=== PATIENT | female | born 1950 | race Caucasian/White ===

== ENCOUNTER → 2016-12-06 | Outpatient (CLI) | payer OTHER | LOC: WI 10:19 | PROVIDERS: ATTEND Physician Assistant Medical | DX: Z78.0 Asymptomatic menopausal state (principal) | CPT/HCPCS: 77080 ==

== ENCOUNTER 2019-01-13 08:31 | Day surgery (SDC) | payer MEDICARE, OTHER ==
[~2019-01-13 08:31] MED LIST: KETOROLAC TROMETHAMINE 0.45% 4 DROP/0.4 ML DROPERETTE OS PRN
[2019-01-13] MEDS ORDERED: CHONDR SU A NA/HYALUR INTRAOC KIT (SURGICARE) ONE (08:32)
[2019-01-13] MEDS ORDERED: LIDOCAINE 1% INJ-PF (10 MG/ML) 30 ML SDV ONE (08:32)
[2019-01-13] MEDS ORDERED: EPINEPHRINE INJ/PF 1 MG/1 ML AMPULE ONE (08:32)
[2019-01-13] MEDS ORDERED: TOBRAMYCIN SULFATE/DEXAMETH OPH OINTMENT 3.5 GM ONE (08:32)
[2019-01-13] MEDS: TETRACAINE HCL 0.5% OPH SOLN 0.6 ML DROPERETTE OS PRN ×3 (08:51→09:30)
[2019-01-13] MEDS: TROPICAMIDE 1% OPH SOLN 3 ML OS PRN ×3 (08:52→09:16)
[2019-01-13] MEDS: BESIFLOXACIN HCL 0.6% OPH SUSP 5 ML BOTTLE OS PRN ×3 (08:52→09:49)
[2019-01-13] MEDS: CYCLOPENTOLATE 0.2%/PHENYLEPHRINE 1% OPH SOLN 2 ML OS PRN ×3 (08:52→09:16)
[2019-01-13] MEDS ORDERED: MIDAZOLAM 2 MG/2 ML INJ ONE (09:31)
[2019-01-13] MEDS ORDERED: FENTANYL CITRATE INJ/PF 100 MCG/2 ML AMPUL ONE (09:32)
== END 2019-01-13 10:37 | disposition home or self-care (01) ==
LOC: SC 08:31
PROVIDERS: ATTEND Ophthalmology
DX: H25.12 Age-related nuclear cataract, left eye (principal); I10 Essential (primary) hypertension; E78.00 Pure hypercholesterolemia, unspecified; Z87.891 Personal history of nicotine dependence; Z79.899 Other long term (current) drug therapy
CPT/HCPCS: 66984; V2632; J2250; J3490 ×3; A9270; J0171; J3010; 142

== ENCOUNTER 2019-05-13 09:07 | Inpatient (IN) | payer MEDICARE, OTHER ==
[2019-05-13] MEDS ORDERED: RINGERS SOLUTION,LACTATED 1,000 ML IV ONE ×2 (09:17→10:00)
--- NOTE | 2019-05-13 09:26 | ER Document Report ---
ED General - General Chief Complaint: Altered Mental Status Stated Complaint: ALTERED MENTAL STATUS Time Seen by Provider: 05/13/19 09:17 Primary Care Provider: MADDISON MG MD [Primary Care Provider] - Follow up as needed TRAVEL OUTSIDE OF THE [place] IN LAST 30 DAYS: Yes - HPI Notes: Patient is a 68-year-old female that presents to the emergency department for chief complaint of altered mental status. HPI is provided by EMS. Patient's called EMS this morning when she seemed to be less responsive. She reportedly was discharged from [facility] last week after having a ischemic stroke which resulted in left-sided deficits. Patient's told EMS that last night she had chills and started to complain of not feeling well. This morning she had 2 episodes of emesis one was prior to EMS arrival and one after. Patient was noted to have a fever of 103 by EMS. Patient states she feels tired but denies pain. She is oriented but slow to respond to questions and a poor historian. Past Medical History: Ischemic stroke Past Surgical History: Reviewed in chart Social History: Reviewed in chart Family History: Reviewed and noncontributory for presenting illness Allergies: Reviewed, see documented allergy list. REVIEW OF SYSTEMS: Unable to obtain because of acuity of condition PHYSICAL EXAMINATION: Vital signs reviewed, nursing noted reviewed. GENERAL: Ill-appearing, well-nourished and in no acute distress. HEAD: Atraumatic, normocephalic. EYES: Eyes appear normal, extraocular movements intact, sclera anicteric, conjunctiva are normal. ENT: nares patent, oropharynx clear without exudates. Mildly dry mucous membranes. NECK: Normal range of motion, supple without lymphadenopathy LUNGS: Breath sounds clear to auscultation bilaterally and equal. No wheezes rales or rhonchi. HEART: Regular rate and rhythm without murmurs ABDOMEN: Soft, nontender, normoactive bowel sounds. No rebound, guarding, or rigidity. No masses appreciated. EXTREMITIES: Nontender, good range of motion, no pitting or edema. NEUROLOGICAL: Somnolent, oriented to person place and time, left upper and lower extremity weakness compared to right. sensory grossly intact on exam. SKIN: Warm, Dry, normal turgor, no rashes or lesions noted on exposed skin - Related Data Allergies/Adverse Reactions: No Known Allergies Allergy (Unverified 06/30/13 13:26) Past Medical History - Social History Smoking Status: Never Smoker Family History: Reviewed & Not Pertinent - Past Medical History Cardiac Medical History: Reports: Hx Hypertension Denies: Hx Heart Attack Pulmonary Medical History: Denies: Hx Asthma Neurological Medical History: Denies: Hx Cerebrovascular Accident, Hx Seizures GI Medical History: Denies: Hx Hepatitis, Hx Hiatal Hernia, Hx Ulcer Infectious Medical History: Denies: Hx Hepatitis Past Surgical History: Reports: Hx Hysterectomy. Denies: Hx Mastectomy, Hx Open Heart Surgery, Hx Pacemaker Physical Exam - Vital signs Vitals: Resp Pulse Ox 21 H 100 05/13/19 09:14 05/13/19 09:14 Course - Re-evaluation Re-evalutation: 05/13/19 09:26 Vitals reviewed. Nursing notes reviewed. Patient was febrile with a temperature of 103 for EMS. They did administer Benadryl and Tylenol orally pr ior to arrival in the ED. They state the Benadryl was for nausea. Patient does have an NIH of 7 but her left-sided deficits are from her recent stroke. Patient has no new significant focal deficits to necessitate TPA. Given her febrile presentation I am suspicious for encephalopathy instead of new ischemic stroke. EMS did report patient received a shunt during her last admission but they do not know where the shunt is. 05/13/19 09:59 Patient reevaluated. Her vital signs are still stable. She still has a temperature of 103 despite receiving Tylenol by EMS. Patient does appear more alert. She is answering questions better but is still slow to respond. 05/13/19 11:30 He did receive documentation from elena and regarding patient's admission which shows she had thrombectomy and right carotid stenting. Patient's work-up today consistent with urosepsis. She has been given Rocephin and 2 L of LR. she will be admitted to the hospital for further care. Case discussed with Dr. Byers who accepts admission. Laboratory 05/13/19 05/13/19 05/13/19 09:14 09:14 09:14 WBC 14.2 H RBC 3.39 L Hgb 10.3 L Hct 30.7 L MCV 90 MCH 30.4 MCHC 33.6 RDW 13.6 Plt Count 417 Total Counted 100 Seg Neutrophils % Not Reportable Seg Neuts % (Manual) 89 H Band Neutrophils % 6 H Lymphocytes % Not Reportable Lymphocytes % (Manual) 4 L Monocytes % Not Reportable Monocytes % (Manual) 1 L Eosinophils % Not Reportable Eosinophils % (Manual) 0 Basophils % Not Reportable Basophils % (Manual) 0 Absolute Neutrophils Not Reportable Abs Neuts (Manual) 13.5 H Absolute Lymphocytes Not Reportable Abs Lymphs (Manual) 0.6 Absolute Monocytes Not Reportable Abs Monocytes (Manual) 0.1 Absolute Eosinophils Not Reportable Absolute Eos (Manual) 0.0 Absolute Basophils Not Reportable Abs Basophils (Manual) 0.0 Toxic Granulation 1+ Toxic Vacuolation PRESENT Platelet Comment ADEQUATE Polychromasia 1+ Poikilocytosis SLIGHT Basophilic Stippling PRESENT Ovalocytes SLIGHT PT 14.8 INR 1.15 VBG pH VBG pCO2 VBG HCO3 VBG Base Excess Sodium 137.7 Potassium 4.0 Chloride 103 Carbon Dioxide 25 Anion Gap 10 BUN 12 Creatinine 0.65 Est GFR ( Amer) > 60 Est GFR (Non-Af Amer) > 60 Glucose 136 H POC Glucose Lactic Acid Calcium 8.9 Total Bilirubin 0.6 Direct Bilirubin 0.3 Neonat Total Bilirubin Not Reportable Neonat Direct Bilirubin Not Reportable Neonat Indirect Bili Not Reportable AST 31 ALT 20 Alkaline Phosphatase 67 Troponin I Total Protein 6.2 L Albumin 3.5 Urine Color Urine Appearance Urine pH Ur Specific [place] Urine Protein Urine Glucose (UA) Urine Ketones Urine Blood Urine Nitrite Urine Bilirubin Urine Urobilinogen Ur Leukocyte Esterase Urine WBC (Auto) Urine RBC (Auto) Squamous Epi Cells Auto Urine Mucus (Auto) Urine Ascorbic Acid 05/13/19 05/13/19 05/13/19 09:14 09:14 09:14 WBC RBC Hgb Hct MCV MCH MCHC RDW Plt Count Total Counted Seg Neutrophils % Seg Neuts % (Manual) Band Neutrophils % Lymphocytes % Lymphocytes % (Manual) Monocytes % Monocytes % (Manual) Eosinophils % Eosinophils % (Manual) Basophils % Basophils % (Manual) Absolute Neutrophils Abs Neuts (Manual) Absolute Lymphocytes Abs Lymphs (Manual) Absolute Monocytes Abs Monocytes (Manual) Absolute Eosinophils Absolute Eos (Manual) Absolute Basophils Abs Basophils (Manual) Toxic Granulation Toxic Vacuolation Platelet Comment Polychromasia Poikilocytosis Basophilic Stippling Ovalocytes PT INR VBG pH 7.38 VBG pCO2 40.1 VBG HCO3 23.2 VBG Base Excess -1.7 Sodium Potassium Chloride Carbon Dioxide Anion Gap BUN Creatinine Est GFR ( Amer) Est GFR (Non-Af Amer) Glucose POC Glucose Lactic Acid 1.4 Calcium Total Bilirubin Direct Bilirubin Neonat Total Bilirubin Neonat Direct Bilirubin Neonat Indirect Bili AST ALT Alkaline Phosphatase Troponin I 0.025 Total Protein Albumin Urine Color Urine Appearance Urine pH Ur Specific [place] Urine Protein Urine Glucose (UA) Urine Ketones Urine Blood Urine Nitrite Urine Bilirubin Urine Urobilinogen Ur Leukocyte Esterase Urine WBC (Auto) Urine RBC (Auto) Squamous Epi Cells Auto Urine Mucus (Auto) Urine Ascorbic Acid 05/13/19 05/13/19 09:43 09:55 WBC RBC Hgb Hct MCV MCH MCHC RDW Plt Count Total Counted Seg Neutrophils % Seg Neuts % (Manual) Band Neutrophils % Lymphocytes % Lymphocytes % (Manual) Monocytes % Monocytes % (Manual) Eosinophils % Eosinophils % (Manual) Basophils % Basophils % (Manual) Absolute Neutrophils Abs Neuts (Manual) Absolute Lymphocytes Abs Lymphs (Manual) Absolute Monocytes Abs Monocytes (Manual) Absolute Eosinophils Absolute Eos (Manual) Absolute Basophils Abs Basophils (Manual) Toxic Granulation Toxic Vacuolation Platelet Comment Polychromasia Poikilocytosis Basophilic Stippling Ovalocytes PT INR VBG pH VBG pCO2 VBG HCO3 VBG Base Excess Sodium Potassium Chloride Carbon Dioxide Anion Gap BUN Creatinine Est GFR ( Amer) Est GFR (Non-Af Amer) Glucose POC Glucose 159 H Lactic Acid Calcium Total Bilirubin Direct Bilirubin Neonat Total Bilirubin Neonat Direct Bilirubin Neonat Indirect Bili AST ALT Alkaline Phosphatase Troponin I Total Protein Albumin Urine Color YELLOW Urine Appearance CLEAR Urine pH 5.0 Ur Specific [place] 1.013 Urine Protein NEGATIVE Urine Glucose (UA) NEGATIVE Urine Ketones NEGATIVE Urine Blood NEGATIVE Urine Nitrite NEGATIVE Urine Bilirubin NEGATIVE Urine Urobilinogen NEGATIVE Ur Leukocyte Esterase TRACE H Urine WBC (Auto) 18 Urine RBC (Auto) 3 Squamous Epi Cells Auto <1 Urine Mucus (Auto) FEW Urine Ascorbic Acid 20 H Chest X-Ray 05/13/19 09:18 IMPRESSION: NO ACUTE RADIOGRAPHIC FINDING IN THE CHEST. Head CT 05/13/19 09:18 IMPRESSION: Age-appropriate chronic white matter disease. Mild motion artifact. No acute findings. EVIDENCE OF ACUTE STROKE: NO. - Vital Signs Vital signs: Temp Pulse Resp BP Pulse Ox 101.4 F H 94 15 98/48 L 95 05/13/19 11:01 05/13/19 09:17 05/13/19 11:01 05/13/19 11:00 05/13/19 11:01 - Laboratory Result Diagrams: 05/13/19 09:14 05/13/19 09:14 Laboratory results interpreted by me: 05/13/19 05/13/19 05/13/19 09:14 09:14 09:43 WBC 14.2 H RBC 3.39 L Hgb 10.3 L Hct 30.7 L Seg Neuts % (Manual) 89 H Band Neutrophils % 6 H Lymphocytes % (Manual) 4 L Monocytes % (Manual) 1 L Abs Neuts (Manual) 13.5 H Glucose 136 H POC Glucose 159 H Total Protein 6.2 L Ur Leukocyte Esterase Urine Ascorbic Acid 05/13/19 09:55 WBC RBC Hgb Hct Seg Neuts % (Manual) Band Neutrophils % Lymphocytes % (Manual) Monocytes % (Manual) Abs Neuts (Manual) Glucose POC Glucose Total Protein Ur Leukocyte Esterase TRACE H Urine Ascorbic Acid 20 H - EKG Interpretation by Me Additional EKG results interpreted by me: 05/13/19 09:26 Interpreted by myself [id number]: Normal sinus rhythm, rate 86, normal axis, no ectopy, no STEMI Discharge - Discharge Clinical Impression: Acute UTI Sepsis Qualifiers: Sepsis type: sepsis due to unspecified organism Qualified Code(s): A41.9 - Sepsis, unspecified organism Altered mental status Qualifiers: Altered mental status type: somnolence Qualified Code(s): R40.0 - Somnolence Vomiting Qualifiers: Vomiting type: unspecified Vomiting Intractability: non-intractable Nausea presence: with nausea Qualified Code(s): R11.2 - Nausea with vomiting, unspecified Condition: Fair Disposition: ADMITTED INPATIENT Admitting Provider: Modesta (Hospitalist) Unit Admitted: IMCU Referrals: MADDISON MG MD [Primary Care Provider] - Follow up as needed ED NIH Stroke Scale - NIH Stroke Scale *: 1. NIH scale should be completed with appropriate accompanying assessment tools. *: 2. The NIH should reflect what the patient is capable of doing and should not be coached by the clinician. 1a. Level of Consciousness: 0=Alert;keenly responsive -: 1=Drowsy -: 2=Obtunded -: 3=Coma/unresponsive or reflex to noxious stimuli. 1a. Responses: 1 1b. Orientation Questions: a. What month is it? -: b. How old are you? -: 0=Answers both questions correctly. -: 1=Answers one question correctly or patient is intubated or has orotracheal trauma. -: 2=Answers neither question correctly. 1b. Responses: 0 1c. Response to commands: a. Open and close eyes? -: b. [employer] and release hand? -: Credit is given despite weakness. Demonstration of task is permitted. Substitute command if hands cannot be used. -: 0=Performs both tasks correctly -: 1=Performs one task correctly -: 2=Performs neither task correctly 1c. Responses: 0 2. Gaze: Establish eye contact and instruct patient to "Follow my finger" -: 0=Normal -: 1=Partial gaze palsy. Gaze is abnormal in one or both eyes, but where forced deviation or total gaze paresis is not present. -: 2=Forced deviation or total gaze paresis. 2. Responses: 0 3. Visual Arana: Sees fingers in all four quadrants. -: 0=No visual loss. -: 1=Partial hemianopsia. -: 2=Complete hemianopsia. -: 3=Bilateral hemianopsia (including Cortical blindness) 3. Responses: 0 4. Facial Movement: Instruct patient to: -: a. Show me your teeth -: b. Raise your eyebrows -: c. Close your eyes -: d. Smile -: 0=Normal symmetrical movement -: 1=Minor paralysis (flattened nasolabial fold, asymmetry on smiling). -: 2=Partial paralysis (total or near total paralysis of lower face). -: 3=Complete paralysis of upper and lower face 4. Responses: 0 5. Motor functions (left arm): Alternate sides and extend each arm with palms down (90 degrees if sitting or 45 degrees for supine). -: 0=No drift;limb holds for full 10 seconds. -: 1=Drift; limb holds but drifts down before full 10 seconds, but does not hit bed. -: 2=Some effort against gravity; limb cannot get to or maintain position. -: 3=No effort against gravity; limb falls. -: 4=No movement. -: UN=Amputation, joint fusion, explain in comments. 5. Responses (left arm): 1 5. Motor Functions (right arm): Alternate sides and extend each arm with palms down (90 degrees if sitting or 45 degrees for supine). -: 0=No drift;limb holds for full 10 seconds. -: 1=Drift; limb holds but drifts down before full 10 seconds, but does not hit bed. -: 2=Some effort against gravity; limb cannot get to or maintain position. -: 3=No effort against gravity; limb falls. -: 4=No movement. -: UN=Amputation, joint fusion, explain in comments. 5. Responses (right arm): 0 6. Motor Functions (left leg): With patient lying supine, alternate sides and extend each leg (30 degrees always while supine). -: 0=No drift, leg holds position for full 5 seconds -: 1=Drift; leg falls before full 5 seconds but does not hit bed. -: 2=Some effort against gravity, leg falls to bed but some effort against gravity. -: 3=No effort against gravity, leg falls to bed immediately. -: 4=No movement. -: UN=Amputation, joint fusion; explain in comments. 6. Responses (left leg): 3 6. Motor Functions (right leg): With patient lying supine, alternate sides and extend each leg (30 degrees always while supine). -: 0=No drift, leg holds position for full 5 seconds -: 1=Drift; leg falls before full 5 seconds but does not hit bed. -: 2=Some effort against gravity, leg falls to bed but some effort against gravity. -: 3=No effort against gravity, leg falls to bed immediately. -: 4=No movement. -: UN=Amputation, joint fusion; explain in comments. 6. Responses (right leg): 2 7. Limb Ataxia: With eyes open instruct patient to: -: a. "Touch your finger to your nose". -: b. "Touch your heel to your montero" -: 0=Absent -: 1=Present in one limb. -: 2=Present in two limbs. -: UN=Amputation or joint fusion; explain in comments. 7. Responses: 0 8. Sensory: Test sensation using pinprick or noxious stimuli. Test as many body parts as possible. -: 0=Normal;no sensory loss -: 1=Mile to moderate sensory loss (patient feels pin prick but is less sharp on affected side). -: 2=Severe or total sensory loss. 8. Responses: 0 9. Best Language: Instruct patient to: -: a. "Describe what you see in this picture." -: b. "Name the items in this picture." -: c. "Read these sentences." -: 0=No aphasia, normal -: 1=Mild to moderate aphasia. -: 2=Severe aphasia -: 3=Mute, global aphasia, no usable speech or auditory comprehension. 9. Responses: 0 10. Articulation, Dysarthia: Instruct patient to: -: "Read these words" or "Repeat these words" -: 0=Normal -: 1=Mild to moderate; patient may slur some words but can be understood without difficulty. -: 2=Severe; patients speech so slurred as to be unintelligible in the absence of dysphasia. -: UN=Intubated or other physical barrier, explain in comments. 10. Responses: 0 11. Extinction or inattention: 0=No abnormality -: 1= Visual, tactile, auditory, spatial, or personal inattention or extinction to bilateral simulation in one or the sensory modalities. -: 2=Profound ros-inattention or ros-inattention to more than one modality; does not recognize own hand. 11. Responses: 0 Total Score: 7
[2019-05-13 09:29] LABS: VENOUS BLOOD BASE EXCESS -1.7 mmol/L; VENOUS BLOOD HCO3 23.2 mmol/L (20-32); VENOUS BLOOD PCO2 40.1 mmHg (35-63); VENOUS BLOOD PH 7.38 (7.30-7.42)
[2019-05-13 09:30] LABS: HEMATOCRIT 30.7 % (36.0-47.0); HEMOGLOBIN 10.3 g/dL (12.0-15.5); MEAN CORPUSCULAR HEMOGLOBIN 30.4 pg (27.0-33.4); MEAN CORPUSCULAR HGB CONC 33.6 g/dL (32.0-36.0); MEAN CORPUSCULAR VOLUME 90 fl (80-97); PLATELET COUNT 417 10^3/uL (150-450); RED BLOOD COUNT 3.39 10^6/uL (3.72-5.28); RED CELL DISTRIBUTION WIDTH 13.6 % (11.5-14.0); WHITE BLOOD COUNT 14.2 10^3/uL (4.0-10.5)
[2019-05-13 09:42] LABS: INTERNATIONAL RATION (INR) 1.15; PROTHROMBIN TIME 14.8 SEC (11.4-15.4)
--- NOTE | 2019-05-13 09:46 | RADIOLOGY REPORT (SQ) ---
EXAM DESCRIPTION: CHEST SINGLE VIEW COMPLETED DATE/TIME: 05/13/2019 9:35 am REASON FOR STUDY: fever COMPARISON: None. EXAM PARAMETERS: NUMBER OF VIEWS: One view. TECHNIQUE: Single frontal radiographic view of the chest acquired. RADIATION DOSE: NA LIMITATIONS: None. FINDINGS: LUNGS AND PLEURA: No opacities, masses or pneumothorax. No pleural effusion. MEDIASTINUM AND HILAR STRUCTURES: No masses. Contour normal. HEART AND VASCULAR STRUCTURES: Heart normal in size. Normal vasculature. BONES: No acute findings. HARDWARE: None in the chest. OTHER: No other significant finding. IMPRESSION: NO ACUTE RADIOGRAPHIC FINDING IN THE CHEST. TECHNICAL DOCUMENTATION: JOB ID: [id number] [employer]- All Rights Reserved Reading location - IP/workstation name: [email or web address]
[2019-05-13 09:51] LABS: ABSOLUTE LYMPHOCYTES# (MANUAL) 0.6 10^3/uL (0.5-4.7); ABSOLUTE MONOCYTES # (MANUAL) 0.1 10^3/uL (0.1-1.4); BAND NEUTROPHILS % (MANUAL) 6 % (3-5); BASOPHILS % (MANUAL) 0 % (0-2); EOSINOPHILS % (MANUAL) 0 % (0-6); LYMPHOCYTES % (MANUAL) 4 % (13-45); MONOCYTES % (MANUAL) 1 % (3-13); SEGMENTED NEUTROPHILS % (MAN) 89 % (42-78); TOTAL CELLS COUNTED 100
[2019-05-13 09:54] LABS: OVALOCYTES SLIGHT; PLATELET COMMENT ADEQUATE; POIKILOCYTOSIS SLIGHT; POLYCHROMASIA 1+; TOXIC GRANULATION 1+; TOXIC VACUOLATION PRESENT
[2019-05-13 09:57] LABS: ALANINE AMINOTRANSFERASE 20 U/L (9-52); ALBUMIN 3.5 g/dL (3.5-5.0); ALKALINE PHOSPHATASE 67 U/L (38-126); ANION GAP 10 (5-19); ASPARTATE AMINO TRANSFERASE 31 U/L (14-36); BILIRUBIN,DIRECT 0.3 mg/dL (0.0-0.4); BILIRUBIN,TOTAL 0.6 mg/dL (0.2-1.3); BLOOD UREA NITROGEN 12 mg/dL (7-20); CALCIUM 8.9 mg/dL (8.4-10.2); CARBON DIOXIDE 25 mmol/L (22-30); CHLORIDE 103 mmol/L (98-107); GLUCOSE 136 mg/dL (75-110); TOTAL PROTEIN 6.2 g/dL (6.3-8.2)
[2019-05-13] MEDS ORDERED: KETOROLAC TROMETHAMINE INJ/PF 30 MG/1 ML SDV IV ONE (09:58)
[2019-05-13] MEDS ORDERED: ONDANSETRON HCL INJ/PF 4 MG/2 ML SDV IV ONE (09:59)
--- NOTE | 2019-05-13 10:10 | RADIOLOGY REPORT (SQ) ---
EXAM DESCRIPTION: CT HEAD WITHOUT COMPLETED DATE/TIME: 05/13/2019 9:44 am REASON FOR STUDY: Altered mental status COMPARISON: AP chest 05/13/2019 Bilateral carotid Doppler exams 08/20/2017, 10/24/2015 TECHNIQUE: Axial images acquired through the brain without intravenous contrast. Images reviewed wi th bone, brain and subdural windows. Additional sagittal and coronal reconstructions were generated. Images stored on PACS. All CT scanners at this facility use dose modulation, iterative reconstruction, and/or weight based d osing when appropriate to reduce radiation dose to as low as reasonably achievable (ALARA). [facility]: Dose Right [facility]: CareDose [facility]: Dose Right [facility]: Teradose 4D [facility]: CardioLogs RADIATION DOSE: CT Rad equipment meets quality standard of care and radiation dose reduction techniq ues were employed. CTDIvol: 53.2 mGy. DLP: 1017 mGy-cm. mGy. LIMITATIONS: Motion artifact on some of the images through the skullbase FINDINGS: VENTRICLES: Normal size and contour. CEREBRUM: No CT evidence of acute large territory ischemic change, acute intracranial hemorrhage, mas s effect, or midline shift. Please note that some of the images are degraded by patient motion artifact. Patient does have basel ine white matter disease in the bifrontal and biparietal regions. These findings were discussed with Nadia Liriano in the emergency room. CEREBELLUM: No masses. No hemorrhage. No alteration of density. No evidence for acute infarction. EXTRAAXIAL SPACES: No fluid collections. No masses. ORBITS AND GLOBE: No intra- or extraconal masses. Post cataract surgery bilaterally CALVARIUM: No fracture. PARANASAL SINUSES: No fluid or mucosal thickening. SOFT TISSUES: No mass or hematoma. OTHER: No other significant finding. IMPRESSION: Age-appropriate chronic white matter disease. Mild motion artifact. No acute findings. EVIDENCE OF ACUTE STROKE: NO. COMMENT: Quality ID # [id number]: Final reports with documentation of one or more dose reduction techniques (e.g., Automated exposure control, adjustment of the mA and/or kV according to patient size, use of iterative reconstruction technique) TECHNICAL DOCUMENTATION: JOB ID: [id number] [employer]- All Rights Reserved Reading location - IP/workstation name: [email or web address]-
[2019-05-13 11:19] LABS: APPEARANCE,URINE CLEAR; BILIRUBIN,URINE NEGATIVE (NEGATIVE); COLOR,URINE YELLOW; GLUCOSE, URINE NEGATIVE (NEGATIVE); KETONES,URINE NEGATIVE (NEGATIVE); LEUKOCYTE ESTERASE,URINE TRACE (NEGATIVE); NITRITE,URINE NEGATIVE (NEGATIVE); PROTEIN,URINE NEGATIVE (NEGATIVE); URINE SPECIFIC GRAVITY 1.013; UROBILINOGEN,URINE NEGATIVE mg/dL (<2.0)
[2019-05-13] MEDS ORDERED: CEFTRIAXONE INJ 1000 MG VIAL IV ONE (11:25)
[2019-05-13] MEDS ORDERED: NORMAL SALINE 1000 ML 1,000 ML IV PRN (12:13)
--- NOTE | 2019-05-13 13:26 | PDOC H&P ---
History of Present Illness Admission Date/PCP: 05/13/19 11:37 MADDISON MG MD Patient complains of: fever, chills History of Present Illness: CHRIS WILBURN is a 68 year old female with a past medical history of hypertension and recent right MCA CVA with mechanical thrombectomy and right ICA angioplasty advised and on 05/07/19 who is presenting with fever and chills. is at bedside. Both aspirin and patient say that she has been apparently fine since she was discharged from the [facility] after her recent CVA. Her stroke symptoms did resolve after neuro intervention. He says that on Friday, she started having chills. She says that last night she had some subjective fever and had chills again. She had an episode of nonbilious, nonbloody vomiting. She denies abdominal pain. She denies dysuria but does report urinary frequency in the past 2 to 3 days. She denies had a, neck pain. No confusion. She is well oriented and coherent. Denies cough or chest pain. Denies shortness of breath. In the ER, patient was noted to be febrile at 101 and blood pressure is running low at 88/55. She was also noted to have leukocytosis. Initial work-up is unremarkable for urinary tract infection. She is currently getting IV fluids. Past Medical History Cardiac Medical History: Reports: Hypertension Denies: Myocardial Infarction Pulmonary Medical History: Denies: Asthma Neurological Medical History: Denies: Seizures GI Medical History: Denies: Hepatitis, Hiatal Hernia Hematology: Denies: Anemia, Sickle Cell Disease Past Surgical History Past Surgical History: Reports: Hysterectomy Denies: Amputation, Mastectomy, Pacemaker Social History Smoking Status: Never Smoker Family History Family History: Reviewed & Not Pertinent Parental Family History Reviewed: Yes - No premature CAD Children Family History Reviewed: No Sibling(s) Family History Reviewed.: No Medication/Allergy Home Medications: Aspirin [Ecotrin 325 mg EC Tablet] 325 mg PO DAILY 05/13/19 Atorvastatin Calcium [Lipitor 40 mg Tablet] 40 mg PO QHS 05/13/19 Clopidogrel Bisulfate [Plavix 75 mg Tablet] 75 mg PO DAILY 05/13/19 Fluoxetine HCl [Prozac 20 mg Capsule] 20 mg PO DAILY 05/13/19 Allergies/Adverse Reactions: No Known Allergies Allergy (Unverified 06/30/13 13:26) Review of Systems All systems: reviewed and no additional remarkable complaints except as stated - As mentioned in HPI Physical Exam Vital Signs: Temp Pulse Resp BP Pulse Ox 101.4 F H 94 15 98/48 L 95 05/13/19 11:01 05/13/19 09:17 05/13/19 11:01 05/13/19 11:00 05/13/19 11:01 Intake & Output 05/12/19 05/13/19 05/14/19 06:59 06:59 06:59 Intake Total 1999 Balance 1999 Weight 141 lb 5.061 oz General appearance: PRESENT: no acute distress, well-developed, well-nourished Head exam: PRESENT: atraumatic, normocephalic Eye exam: PRESENT: conjunctiva pink, EOMI, PERRLA. ABSENT: scleral icterus Ear exam: PRESENT: normal external ear exam Mouth exam: PRESENT: moist, tongue midline Neck exam: ABSENT: carotid bruit, JVD, lymphadenopathy, thyromegaly Respiratory exam: PRESENT: clear to auscultation jareth. ABSENT: rales, rhonchi, wheezes Cardiovascular exam: PRESENT: RRR. ABSENT: diastolic murmur, rubs, systolic murmur Pulses: PRESENT: normal dorsalis pedis pul GI/Abdominal exam: PRESENT: normal bowel sounds, soft. ABSENT: distended, guarding, mass, organolmegaly, rebound, tenderness Rectal exam: PRESENT: deferred Extremities exam: PRESENT: full ROM. ABSENT: calf tenderness, clubbing, pedal edema Neurological exam: PRESENT: alert, awake, oriented to person, oriented to place, oriented to time, oriented to situation, CN II-XII grossly intact. ABSENT: motor sensory deficit Results Laboratory Results: 05/13/19 09:14 05/13/19 09:14 05/13/19 05/13/19 05/13/19 09:14 09:14 09:14 WBC 14.2 H RBC 3.39 L Hgb 10.3 L Hct 30.7 L MCV 90 MCH 30.4 MCHC 33.6 RDW 13.6 Plt Count 417 Seg Neutrophils % Not Reportable Lymphocytes % Not Reportable Monocytes % Not Reportable Eosinophils % Not Reportable Basophils % Not Reportable Absolute Neutrophils Not Reportable Absolute Lymphocytes Not Reportable Absolute Monocytes Not Reportable Absolute Eosinophils Not Reportable Absolute Basophils Not Reportable VBG pH VBG pCO2 VBG HCO3 VBG Base Excess Sodium 137.7 Potassium 4.0 Chloride 103 Carbon Dioxide 25 Anion Gap 10 BUN 12 Creatinine 0.65 Est GFR ( Amer) > 60 Est GFR (Non-Af Amer) > 60 Glucose 136 H Lactic Acid 1.4 Calcium 8.9 Total Bilirubin 0.6 AST 31 ALT 20 Alkaline Phosphatase 67 Total Protein 6.2 L Albumin 3.5 Urine Color Urine Appearance Urine pH Ur Specific Darby Urine Protein Urine Glucose (UA) Urine Ketones Urine Blood Urine Nitrite Ur Leukocyte Esterase Urine WBC (Auto) Urine RBC (Auto) 05/13/19 05/13/19 09:14 09:55 WBC RBC Hgb Hct MCV MCH MCHC RDW Plt Count Seg Neutrophils % Lymphocytes % Monocytes % Eosinophils % Basophils % Absolute Neutrophils Absolute Lymphocytes Absolute Monocytes Absolute Eosinophils Absolute Basophils VBG pH 7.38 VBG pCO2 40.1 VBG HCO3 23.2 VBG Base Excess -1.7 Sodium Potassium Chloride Carbon Dioxide Anion Gap BUN Creatinine Est GFR ( Amer) Est GFR (Non-Af Amer) Glucose Lactic Acid Calcium Total Bilirubin AST ALT Alkaline Phosphatase Total Protein Albumin Urine Color YELLOW Urine Appearance CLEAR Urine pH 5.0 Ur Specific Darby 1.013 Urine Protein NEGATIVE Urine Glucose (UA) NEGATIVE Urine Ketones NEGATIVE Urine Blood NEGATIVE Urine Nitrite NEGATIVE Ur Leukocyte Esterase TRACE H Urine WBC (Auto) 18 Urine RBC (Auto) 3 05/13/19 09:14 Troponin I 0.025 Impressions: Chest X-Ray 05/13/19 09:18 IMPRESSION: NO ACUTE RADIOGRAPHIC FINDING IN THE CHEST. Head CT 05/13/19 09:18 IMPRESSION: Age-appropriate chronic white matter disease. Mild motion artifact. No acute findings. EVIDENCE OF ACUTE STROKE: NO. Assessment and Plan - Diagnosis (1) Sepsis Qualifiers: Sepsis type: sepsis due to unspecified organism Qualified Code(s): A41.9 - Sepsis, unspecified organism Is this a current diagnosis for this admission?: Yes Plan: Likely secondary to urinary tract infection. Will continue Rocephin. Blood and urine cultures have been sent. She will be given a liter of IV fluids. If there is no improvement in her blood pressure, she may need a vasopressor. (2) UTI (urinary tract infection) Is this a current diagnosis for this admission?: Yes Plan: We will continue IV Rocephin. Urine culture sent. (3) Recent cerebrovascular accident (CVA) Is this a current diagnosis for this admission?: Yes Plan: Recent right MCA mechanical thrombectomy and a right ICA angioplasty on 05/07/2019. Her CVA symptoms particularly left-sided hemiparesis has completely resolved. Will resume aspirin and Plavix. - Time Time Spent with patient: 25-34 minutes
--- NOTE | 2019-05-13 13:27 | ADVANCED CARE ---
- Diagnosis (1) Sepsis Diagnosis Current: Yes (2) UTI (urinary tract infection) Diagnosis Current: Yes (3) Recent cerebrovascular accident (CVA) Diagnosis Current: Yes Resuscitation Status: Full Code Discussion: Discussed with patient and at bedside. She says she is a full code and prefers chest compressions, defibrillation and mechanical ventilation if the need arises. She says her , Yevgeniy is her surrogate medical decision maker.
--- NOTE | 2019-05-13 18:14 | EKG REPORT ---
SEVERITY:- NORMAL ECG - SINUS RHYTHM : Confirmed by: Pratima Pagan MD 13-May-2019 18:13:46
[2019-05-13] MEDS ORDERED: VANCOMYCIN HCL 0 MG in DEXTROSE 5%-WATER 250 ML IV NR (21:00)
[2019-05-13 21:06] LABS: ARTERIAL BLOOD BASE EXCESS -3.8 mmol/L; ARTERIAL BLOOD H2CO3 0.86 mmol/L (1.05-1.35); ARTERIAL BLOOD HCO3 19.2 mmol/L (20-24); ARTERIAL BLOOD O2 SATURATION 89.8 % (94-98); ARTERIAL BLOOD PCO2 28.7 mmHg (35-45); ARTERIAL BLOOD PH 7.44 (7.35-7.45); ARTERIAL BLOOD PO2 53.9 mmHg (80-100); ARTERIAL BLOOD TOTAL CO2 20.1 mmol/L (21-25)
[2019-05-13 21:09] LABS: ARTERIAL BLOOD FIO2 100%
[2019-05-13] MEDS: HEPARIN SOD (PORCINE) 5,000 UNIT/ML 1 ML VIAL SUBCUT SCH (21:18)
[2019-05-13] MEDS ORDERED: FUROSEMIDE INJ/PF 40 MG/4 ML SDV IV ONE (21:30)
[2019-05-13] MEDS ORDERED: MORPHINE SULFATE 10 MG/ML INJ IV ONE (21:30)
--- NOTE | 2019-05-13 21:48 | RADIOLOGY REPORT (SQ) ---
EXAM DESCRIPTION: XR CHEST 1 VIEW COMPLETED DATE/TME: 05/13/2019 00:00 CLINICAL HISTORY: 68 years, Female, sob findings: Right lower lobe and left lower lobe airspace disease/pulmonary edema. No significant pleural effusions. IMPRESSION: Findings consistent with CHF.
--- NOTE | 2019-05-13 21:49 | RADIOLOGY REPORT (SQ) ---
XR ABDOMEN 2 VIEWS SUPINE ERECT CLINICAL STATEMENT: vomiting COMPARISON: None FINDINGS: No abnormal renal or ureteral calculus identified. Mild amount of stool in the colon. No free air. No dilated loops of bowel or air-fluid levels. Postoperative changes in the lumbar spine. IMPRESSION: No evidence for bowel obstruction.
[2019-05-13] MEDS ORDERED: VANCOMYCIN HCL 1,250 MG in DEXTROSE 5%-WATER 250 ML IV ONE (22:00)
[2019-05-13 22:04] LABS: ANION GAP 7 (5-19); BLOOD UREA NITROGEN 11 mg/dL (7-20); CALCIUM 8.8 mg/dL (8.4-10.2); CARBON DIOXIDE 25 mmol/L (22-30); CHLORIDE 109 mmol/L (98-107); CREATINE KINASE 414 U/L (30-135); GLUCOSE 130 mg/dL (75-110); POTASSIUM 3.9 mmol/L (3.6-5.0)
[2019-05-13 22:16] LABS: CREATINE KINASE MB 5.02 ng/mL (<4.55)
[2019-05-13 22:19] LABS: TROPONIN I 0.122 ng/mL
[2019-05-13] MEDS ORDERED: ATORVASTATIN CALCIUM 40 MG TABLET PO ONE (23:15)
[2019-05-13] MEDS ORDERED: ASPIRIN 300 MG SUPP, RECTAL PR ONE ×2 (23:15→23:25)
[2019-05-13] MEDS: ACETAMINOPHEN 325 MG SUPP.RECT PR PRN (23:18)
[2019-05-14 03:48] LABS: ABSOLUTE LYMPHOCYTES (AUTO) 0.9 10^3/uL (0.5-4.7); ABSOLUTE MONOCYTES (AUTO) 0.8 10^3/uL (0.1-1.4); ABSOLUTE NEUT (AUTO) 14.3 10^3/uL (1.7-8.2); BASOPHILS % (AUTO) 0.3 % (0-2); LYMPHOCYTES % (AUTO) 5.6 % (13-45); MEAN CORPUSCULAR HEMOGLOBIN 30.2 pg (27.0-33.4); MEAN CORPUSCULAR HGB CONC 33.5 g/dL (32.0-36.0); MEAN CORPUSCULAR VOLUME 90 fl (80-97); MONOCYTES % (AUTO) 4.8 % (3-13); PLATELET COUNT 337 10^3/uL (150-450); RED BLOOD COUNT 2.99 10^6/uL (3.72-5.28); RED CELL DISTRIBUTION WIDTH 13.9 % (11.5-14.0); SEGMENTED NEUTROPHILS % (AUTO) 89.3 % (42-78); TOTAL CELLS COUNTED % (AUTO) 100 %
[2019-05-14 04:06] LABS: ANION GAP 6 (5-19); BLOOD UREA NITROGEN 11 mg/dL (7-20); CALCIUM 8.4 mg/dL (8.4-10.2); CARBON DIOXIDE 26 mmol/L (22-30); CHLORIDE 109 mmol/L (98-107); GLUCOSE 136 mg/dL (75-110); POTASSIUM 3.6 mmol/L (3.6-5.0)
[2019-05-14 04:17] LABS: CREATINE KINASE MB 5.56 ng/mL (<4.55)
[2019-05-14 04:21] LABS: TROPONIN I 1.59 ng/mL
--- NOTE | 2019-05-14 08:48 | RADIOLOGY REPORT (SQ) ---
EXAM DESCRIPTION: CHEST SINGLE VIEW COMPLETED DATE/TIME: 05/14/2019 8:26 am REASON FOR STUDY: reassess congestion COMPARISON: 05/13/2019 2103 hours EXAM PARAMETERS: NUMBER OF VIEWS: One view. TECHNIQUE: Single frontal radiographic view of the chest acquired. RADIATION DOSE: NA LIMITATIONS: None. FINDINGS: LUNGS AND PLEURA: No opacities, masses or pneumothorax. No pleural effusion. MEDIASTINUM AND HILAR STRUCTURES: No masses. Contour normal. HEART AND VASCULAR STRUCTURES: Heart normal in size. Normal vasculature. BONES: No acute findings. HARDWARE: None in the chest. OTHER: No other significant finding. IMPRESSION: Resolved alveolar and interstitial pulmonary edema. TECHNICAL DOCUMENTATION: JOB ID: [id number] [employer]- All Rights Reserved Reading location - IP/workstation name: [email or web address]
[2019-05-14] MEDS ORDERED: CEFTRIAXONE 1 GM/D5W RTU 1 GM/50 ML RTUPB IV SCH (10:00)
[2019-05-14] MEDS ORDERED: ASPIRIN 81 MG TABLET, CHEWABLE PO SCH (10:00)
[2019-05-14] MEDS: CLOPIDOGREL BISULFATE 75 MG TABLET PO SCH (10:07)
[2019-05-14] MEDS: HEPARIN SOD (PORCINE) 5,000 UNIT/ML 1 ML VIAL SUBCUT SCH ×2 (10:07→22:10)
[2019-05-14] MEDS: VANCOMYCIN HCL 750 MG in DEXTROSE 5%-WATER 250 ML IV SCH ×2 (10:14→22:11)
[2019-05-14] MEDS: CEFTRIAXONE SODIUM 1,000 MG in DEXTROSE 5%-WATER 50 ML IV SCH (10:15)
[2019-05-14 10:25] LABS: CREATINE KINASE MB 7.53 ng/mL (<4.55)
[2019-05-14 10:33] LABS: TROPONIN I 0.971 ng/mL
--- NOTE | 2019-05-14 14:11 | XCELERA REPORT ---
[address] [address] Transthoracic Echocardiogram Report Name: CHRIS WILBURN Age: 68 yrs Gender: Female : 1950 Patient Status: Inpatient Patient Location: [facility]^A Study Date: 05/14/2019 10:42 AM Height: 63 in Weight: 148 lb BSA: 1.7 m2 Procedure: A two-dimensional transthoracic echocardiogram with color flow and Doppler was performed. The study was technically difficult with many images being suboptimal in quality. Reason For Study: acute chf History: CHF. Ordering Physician: ROYAL GUTIERREZ Performed By: Jessi Negrete Interpretation Summary The left ventricle is normal in size. There is normal left ventricular wall thickness. LV EF is > than 65% Left ventricular systolic function is normal. Doppler measurements suggest normal left ventricular diastolic function The left ventricular wall motion is normal. There is no thrombus. The right ventricle is mildly dilated. The right ventricle is not well visualized secondary to technical limitations The right atrium is normal. The left atrial size is normal. No ASD,VSD,or PFO seen. There is no evidence of mitral valve prolapse. There is no vegetation seen on the mitral valve. There is no mitral valve stenosis. There is a trace amount of mitral regurgitation There is no aortic valvular vegetation. There is no aortic valve stenosis There is no LVOT obstruction. No aortic regurgitation is present. There is no pulmonic valvular stenosis. There is no pulmonic valvular regurgitation. The aortic root is normal size. The inferior vena cava appeared dilated and decreased < 50% with respiration (RAP 15-20 mmHg) There is no tricuspid stenosis. There is a moderate to severe amount of tricuspid regurgitation There is moderate pulmonary hypertension by echo RVSP is 54 to 59 mm of Hg , with RA mean of 15 to20. There is no pericardial effusion. MMode/2D Measurements & Calculations RVDd: 3.8 cm LVIDd: 4.2 cm FS: 38.4 % Ao root diam: 2.2 cm IVSd: 0.83 cm LVIDs: 2.6 cm EDV(Teich): 77.5 ml Ao root area: 3.9 cm2 LVPWd: 0.76 cm ESV(Teich): 24.0 ml LA dimension: 3.9 cm EF(Teich): 69.1 % Doppler Measurements & Calculations MV E max tim: MV P1/2t max tim: Ao V2 max: LV V1 max P.3 cm/sec 127.8 cm/sec 138.8 cm/sec 5.8 mmHg MV A max tim: MV P1/2t: 67.8 msec Ao max P.7 mmHgLV V1 max: 51.8 cm/sec MVA(P1/2t): 3.2 cm2 120.4 cm/sec MV E/A: 2.5 MV dec slope: 552.1 cm/sec2 MV dec time: 0.19 sec PA V2 max: TR max tim: MV P1/2t-pr_phl: 95.3 cm/sec 313.6 cm/sec 67.8 msec PA max P.6 mmHgTR max P.3 mmHg Left Ventricle The left ventricle is normal in size. There is normal left ventricular wall thickness. LV EF is > than 65%. Left ventricular systolic function is normal. Doppler measurements suggest normal left ventricular diastolic function. The left ventricular wall motion is normal. There is no thrombus. Right Ventricle The right ventricle is mildly dilated. The right ventricle is not well visualized secondary to technical limitations. Atria The right atrium is normal. The left atrial size is normal. No ASD,VSD,or PFO seen. Mitral Valve There is mild mitral annular calcification. There is no evidence of mitral valve prolapse. There is no vegetation seen on the mitral valve. There is no mitral valve stenosis. There is a trace amount of mitral regurgitation. Aortic Valve There is no aortic valvular vegetation. There is no aortic valve stenosis. There is no LVOT obstruction. No aortic regurgitation is present. Tricuspid Valve There is no tricuspid stenosis. There is a moderate to severe amount of tricuspid regurgitation. There is moderate pulmonary hypertension by echo. RVSP is 54 to 59 mm of Hg , with RA mean of 15 to20. Pulmonic Valve There is no pulmonic valvular stenosis. There is no pulmonic valvular regurgitation. Great Vessels The aortic root is normal size. The inferior vena cava appeared dilated and decreased < 50% with respiration (RAP 15-20 mmHg). Effusions There is no pericardial effusion. : ROYAL GUTIERREZ > Pratima Pagan
--- NOTE | 2019-05-14 14:22 | PDOC PROGRESS REPORT ---
Subjective Progress Note for:: 05/14/19 Subjective:: This is a 68 year old female with a past medical history of hypertension and recent right MCA CVA with mechanical thrombectomy and right ICA angioplasty advised and on 05/07/19 who is presenting with fever and chills. He was admitted for sepsis. Initial work-up was only remarkable for UTI as source of infection. She did complain of dysuria at home as well. She was given 3L of IV fluids in the ER and was continue normal saline. Last night, patient developed shortness of breath. She became hypoxic and was put on BiPAP. Repeat chest x-ray showed bilateral infiltrates possibly congestion. Her fluids were stopped and she was given IV Lasix which gave her relief. She did have an elevation of her troponin at 1.5. She denies chest pain. This morning upon encounter, patient is more comfortable. She has been weaned off BiPAP and is saturating well on 2 L nasal cannula. She says his shortness of breath has resolved. As mentioned, she denies chest pain. We will try to wean her off O2. Blood cultures are growing gram-positive cocci 2/. No murmur appreciated on exam. Reason For Visit: SEPSIS,UTI,RECENT CVA Physical Exam Vital Signs: Temp Pulse Resp BP Pulse Ox 98.1 F 63 16 134/73 H 97 05/14/19 12:35 05/14/19 12:35 05/14/19 12:35 05/14/19 12:35 05/14/19 12:35 Intake & Output 05/13/19 05/14/19 05/15/19 06:59 06:59 06:59 Intake Total 3087 Output Total 1550 Balance 1537 Weight 149 lb 4.047 oz General appearance: PRESENT: no acute distress, well-developed, well-nourished Head exam: PRESENT: atraumatic, normocephalic Eye exam: PRESENT: conjunctiva pink, EOMI, PERRLA. ABSENT: scleral icterus Ear exam: PRESENT: normal external ear exam Mouth exam: PRESENT: moist, tongue midline Neck exam: ABSENT: carotid bruit, JVD, lymphadenopathy, thyromegaly Respiratory exam: PRESENT: clear to auscultation jareth. ABSENT: rales, rhonchi, wheezes Cardiovascular exam: PRESENT: RRR. ABSENT: diastolic murmur, rubs, systolic murmur Pulses: PRESENT: normal dorsalis pedis pul GI/Abdominal exam: PRESENT: normal bowel sounds, soft. ABSENT: distended, guarding, mass, organolmegaly, rebound, tenderness Rectal exam: PRESENT: deferred Extremities exam: PRESENT: full ROM. ABSENT: calf tenderness, clubbing, pedal edema Neurological exam: PRESENT: alert, awake, oriented to person, oriented to place, oriented to time, oriented to situation, CN II-XII grossly intact. ABSENT: motor sensory deficit Results Laboratory Results: 05/14/19 03:39 05/14/19 03:39 05/13/19 05/13/19 05/14/19 20:48 21:37 03:39 WBC 16.0 H RBC 2.99 L Hgb 9.0 L Hct 27.0 L MCV 90 MCH 30.2 MCHC 33.5 RDW 13.9 Plt Count 337 Seg Neutrophils % 89.3 H Lymphocytes % 5.6 L Monocytes % 4.8 Eosinophils % 0.0 Basophils % 0.3 Absolute Neutrophils 14.3 H Absolute Lymphocytes 0.9 Absolute Monocytes 0.8 Absolute Eosinophils 0.0 Absolute Basophils 0.0 Carbonic Acid 0.86 L HCO3/H2CO3 Ratio 22:1 ABG pH 7.44 ABG pCO2 28.7 L ABG pO2 53.9 L ABG HCO3 19.2 L ABG O2 Saturation 89.8 L ABG Base Excess -3.8 FiO2 100% Sodium 141.3 Potassium 3.9 Chloride 109 H Carbon Dioxide 25 Anion Gap 7 BUN 11 Creatinine 0.58 Est GFR ( Amer) > 60 Est GFR (Non-Af Amer) > 60 Glucose 130 H Calcium 8.8 05/14/19 03:39 WBC RBC Hgb Hct MCV MCH MCHC RDW Plt Count Seg Neutrophils % Lymphocytes % Monocytes % Eosinophils % Basophils % Absolute Neutrophils Absolute Lymphocytes Absolute Monocytes Absolute Eosinophils Absolute Basophils Carbonic Acid HCO3/H2CO3 Ratio ABG pH ABG pCO2 ABG pO2 ABG HCO3 ABG O2 Saturation ABG Base Excess FiO2 Sodium 140.7 Potassium 3.6 Chloride 109 H Carbon Dioxide 26 Anion Gap 6 BUN 11 Creatinine 0.60 Est GFR ( Amer) > 60 Est GFR (Non-Af Amer) > 60 Glucose 136 H Calcium 8.4 05/13/19 05/13/19 05/13/19 09:14 21:37 21:37 Creatine Kinase 414 H CK-MB (CK-2) 5.02 H Troponin I 0.025 0.122 NT-Pro-B Natriuret Pep 05/13/19 05/14/19 05/14/19 21:37 03:39 03:39 Creatine Kinase 516 H CK-MB (CK-2) 5.56 H Troponin I 1.590 NT-Pro-B Natriuret Pep 3770 H 05/14/19 05/14/19 09:25 09:25 Creatine Kinase 694 H CK-MB (CK-2) 7.53 H Troponin I 0.971 NT-Pro-B Natriuret Pep Impressions: Head CT 05/13/19 09:18 IMPRESSION: Age-appropriate chronic white matter disease. Mild motion artifact. No acute findings. EVIDENCE OF ACUTE STROKE: NO. Abdomen X-Ray 05/13/19 20:55 IMPRESSION: No evidence for bowel obstruction. Chest X-Ray 05/14/19 07:48 IMPRESSION: Resolved alveolar and interstitial pulmonary edema. Assessment and Plan - Diagnosis (1) Sepsis Qualifiers: Sepsis type: sepsis due to unspecified organism Qualified Code(s): A41.9 - Sepsis, unspecified organism Is this a current diagnosis for this admission?: Yes Plan: Likely secondary to urinary tract infection. On IV Rocephin. Blood culture grew gram-positive cocci 2/2 so far. No murmur appreciated on exam. Vancomycin was added last night. An echocardiogram has also noted to evaluate for vegetations. (2) UTI (urinary tract infection) Is this a current diagnosis for this admission?: Yes Plan: Continue Rocephin. (3) Recent cerebrovascular accident (CVA) Is this a current diagnosis for this admission?: Yes Plan: Recent right MCA mechanical thrombectomy and a right ICA angioplasty on 05/07/2019. Her CVA symptoms particularly left-sided hemiparesis has completely resolved. Continue aspirin and Plavix. (4) Elevated troponin Is this a current diagnosis for this admission?: Yes Plan: Troponin went up to 1.5. She did have congestion last night. She got relief from IV Lasix. Fluids have been held. She denies chest pain. This could be possibly type 2 PA/demand ischemia. Will consult cardiology for further recommendations. - Time Time Spent with patient: 25-34 minutes
--- NOTE | 2019-05-14 14:30 | EKG REPORT ---
SEVERITY:- ABNORMAL ECG - ATRIAL FIBRILLATION CONSIDER POSTERIOR INFARCT MINIMAL ST DEPRESSION, ANTEROLATERAL LEADS : Confirmed by: Pratima Pagan MD 14-May-2019 14:30:09
[2019-05-14] MEDS: ACETAMINOPHEN 325 MG SUPP.RECT PR PRN (16:54)
[2019-05-14] MEDS: ATORVASTATIN CALCIUM 40 MG TABLET PO SCH (22:10)
--- NOTE | 2019-05-14 22:24 | RADIOLOGY REPORT (SQ) ---
EXAM DESCRIPTION: [facility]: CT CHEST ANGIOGRAPHY WITHOUT THEN WITH IV CONTRAST CLINICAL HISTORY: 68 years Female; r/o PE, elev RSVP on echo TECHNIQUE: CT angiogram of the chest using intravenous contrast.. MIP reconstructions were performed. All CT scans at this facility use dose modulation, iterative reconstruction, and/or weight based dosing when appropriate to reduce radiation dose to as low as reasonably achievable. COMPARISON: None. FINDINGS: Chest: No filling defects in the central pulmonary arteries. Bilateral pleural effusions are 1.2 cm thick. There are scattered patchy alveolar/interstitial infiltrates in both lungs, worse on the right and in the posterior left lower lobe. No pneumothorax. Aorta: Scattered calcifications. No aneurysm or dissection Left subclavian artery: 50% stenosis at origin, with focal outpouching of contrast 5 x 11 mm adjacent to the origin. See series 602, image 44. There is increased density in the soft tissues adjacent to the distal aortic arch and left subclavian artery origin; the focal ulceration could be a pseudoaneurysm adjacent to the origin. Origins of the left common carotid artery and innominate are unremarkable other than mild focal calcific plaque. Distal esophagus appears somewhat thickened. No extraluminal air. Hiatal hernia is noted. Moderate coronary artery calcifications are noted. No significant pericardial effusion. IMPRESSION: 1. No CT evidence for pulmonary embolism. 2. Small bilateral pleural effusions and patchy bilateral alveolar interstitial infiltrates, likely pulmonary edema. 3. At least 50% stenosis at the origin of the left subclavian artery. Focal ulceration versus pseudoaneurysm at the left subclavian artery origin, without adjacent increased soft tissue density. This could be an acute localized pseudoaneurysm/dissection, with adjacent hemorrhage. 4. Hiatal hernia with diffuse esophageal wall thickening, suspicious for acute esophagitis. 5. Coronary artery calcifications.
[2019-05-15 04:45] LABS: ABSOLUTE EOSINOPHILS # (AUTO) 0.2 10^3/uL (0.0-0.6); ABSOLUTE LYMPHOCYTES (AUTO) 1.2 10^3/uL (0.5-4.7); ABSOLUTE MONOCYTES (AUTO) 0.7 10^3/uL (0.1-1.4); ABSOLUTE NEUT (AUTO) 11.5 10^3/uL (1.7-8.2); BASOPHILS % (AUTO) 0.2 % (0-2); EOSINOPHILS % (AUTO) 1.2 % (0-6); HEMATOCRIT 27.3 % (36.0-47.0); HEMOGLOBIN 9.4 g/dL (12.0-15.5); LYMPHOCYTES % (AUTO) 9.1 % (13-45); MEAN CORPUSCULAR HEMOGLOBIN 30.5 pg (27.0-33.4); MEAN CORPUSCULAR HGB CONC 34.3 g/dL (32.0-36.0); MEAN CORPUSCULAR VOLUME 89 fl (80-97); PLATELET COUNT 334 10^3/uL (150-450); RED BLOOD COUNT 3.07 10^6/uL (3.72-5.28); RED CELL DISTRIBUTION WIDTH 13.8 % (11.5-14.0); SEGMENTED NEUTROPHILS % (AUTO) 84.5 % (42-78); TOTAL CELLS COUNTED % (AUTO) 100 %; WHITE BLOOD COUNT 13.6 10^3/uL (4.0-10.5)
[2019-05-15 05:06] LABS: ANION GAP 6 (5-19); BLOOD UREA NITROGEN 7 mg/dL (7-20); CALCIUM 8.7 mg/dL (8.4-10.2); CARBON DIOXIDE 28 mmol/L (22-30); CHLORIDE 104 mmol/L (98-107); GLUCOSE 125 mg/dL (75-110); POTASSIUM 3.5 mmol/L (3.6-5.0)
[2019-05-15] MEDS: ACETAMINOPHEN 325 MG SUPP.RECT PR PRN (08:14)
[2019-05-15 09:41] LABS: CREATINE KINASE MB 1.82 ng/mL (<4.55); TROPONIN I 0.406 ng/mL
[2019-05-15] MEDS ORDERED: (PENDING PHARMACY ID) (Omega-3/Dha/Epa/Fish Oil [Fish Oil 1,000 Mg Softgel] 2,000 MG) PO SCH (10:00)
[2019-05-15 10:34] LABS: VANCOMYCIN,TROUGH 5.5 ug/mL (5.0-20.0)
[2019-05-15] MEDS: OMEGA-3 ACID ETHYL ESTERS 1 GM CAPSULE PO SCH ×2 (10:52→17:47)
[2019-05-15] MEDS: CLOPIDOGREL BISULFATE 75 MG TABLET PO SCH ×2 (10:53→10:56)
[2019-05-15] MEDS: ASPIRIN 325 MG TABLET, ENT COATED PO SCH (10:53)
[2019-05-15] MEDS: LISINOPRIL 10 MG TABLET PO SCH (10:55)
[2019-05-15] MEDS: ESTROGENS,CONJUGATED 0.3 MG TABLET PO SCH (10:55)
[2019-05-15] MEDS: FLUOXETINE HCL 20 MG CAPSULE PO SCH (10:55)
[2019-05-15] MEDS: VANCOMYCIN HCL 750 MG in DEXTROSE 5%-WATER 250 ML IV SCH (10:56)
[2019-05-15] MEDS: HEPARIN SOD (PORCINE) 5,000 UNIT/ML 1 ML VIAL SUBCUT SCH ×2 (10:56→21:26)
[2019-05-15] MEDS: CEFTRIAXONE SODIUM 1,000 MG in DEXTROSE 5%-WATER 50 ML IV SCH (10:57)
--- NOTE | 2019-05-15 17:46 | PDOC PROGRESS REPORT ---
Subjective Progress Note for:: 05/15/19 Subjective:: This is a 68 year old female with a past medical history of hypertension and recent right MCA CVA with mechanical thrombectomy and right ICA angioplasty advised and on 05/07/19 who is presenting with fever and chills. He was admitted for sepsis. Initial work-up was only remarkable for UTI as source of infection. She did complain of dysuria at home as well. She was given 3L of IV fluids in the ER and was continue normal saline. 05/14: Last night, patient developed shortness of breath. She became hypoxic and was put on BiPAP. Repeat chest x-ray showed bilateral infiltrates possibly congestion. Her fluids were stopped and she was given IV Lasix which gave her relief. She did have an elevation of her troponin at 1.5. She denies chest pain. This morning upon encounter, patient is more comfortable. She has been weaned off BiPAP and is saturating well on 2 L nasal cannula. She says his shortness of breath has resolved. As mentioned, she denies chest pain. We will try to wean her off O2. Blood cultures are growing gram-positive cocci 11/14. No murmur appreciated on exam. 05/15: Acute event overnight. She was weaned off O2 yesterday. She has been comfortable saturating well on room air. No fever overnight. Her pulmonary edema has resolved resolved with a dose of IV Lasix. She does not have any shortness of breath or chest pain. Chest CTA was also negative for PE. Initial report mentioned a questionable pseudoaneurysm versus dissection in the subclavian vessel. Discussed with radiologist propellant charge zone assembler, Dr. Granados on who says that there is no dissection and this appears to be a plaque rather than a dissection. Reason For Visit: SEPSIS,UTI,RECENT CVA Physical Exam Vital Signs: Temp Pulse Resp BP Pulse Ox 97.7 F 68 18 110/54 L 98 05/15/19 15:18 05/15/19 15:18 05/15/19 15:18 05/15/19 15:18 05/15/19 15:18 Intake & Output 05/14/19 05/15/19 05/16/19 06:59 06:59 06:59 Intake Total 3087 2147 300 Output Total 1550 1330 475 Balance 1537 817 -175 Weight 149 lb 4.047 oz 149 lb 4.047 oz General appearance: PRESENT: no acute distress, well-developed, well-nourished Head exam: PRESENT: atraumatic, normocephalic Eye exam: PRESENT: conjunctiva pink, EOMI, PERRLA. ABSENT: scleral icterus Ear exam: PRESENT: normal external ear exam Mouth exam: PRESENT: moist, tongue midline Neck exam: ABSENT: carotid bruit, JVD, lymphadenopathy, thyromegaly Respiratory exam: PRESENT: clear to auscultation jareth. ABSENT: rales, rhonchi, wheezes Cardiovascular exam: PRESENT: RRR. ABSENT: diastolic murmur, rubs, systolic murmur Pulses: PRESENT: normal dorsalis pedis pul GI/Abdominal exam: PRESENT: normal bowel sounds, soft. ABSENT: distended, guarding, mass, organolmegaly, rebound, tenderness Rectal exam: PRESENT: deferred Extremities exam: PRESENT: full ROM. ABSENT: calf tenderness, clubbing, pedal edema Neurological exam: PRESENT: alert, awake, oriented to person, oriented to place, oriented to time, oriented to situation, CN II-XII grossly intact. ABSENT: motor sensory deficit Results Laboratory Results: 05/15/19 04:08 05/15/19 04:08 05/15/19 05/15/19 04:08 04:08 WBC 13.6 H RBC 3.07 L Hgb 9.4 L Hct 27.3 L MCV 89 MCH 30.5 MCHC 34.3 RDW 13.8 Plt Count 334 Seg Neutrophils % 84.5 H Lymphocytes % 9.1 L Monocytes % 5.0 Eosinophils % 1.2 Basophils % 0.2 Absolute Neutrophils 11.5 H Absolute Lymphocytes 1.2 Absolute Monocytes 0.7 Absolute Eosinophils 0.2 Absolute Basophils 0.0 Sodium 137.7 Potassium 3.5 L Chloride 104 Carbon Dioxide 28 Anion Gap 6 BUN 7 Creatinine 0.44 L Est GFR ( Amer) > 60 Est GFR (Non-Af Amer) > 60 Glucose 125 H Calcium 8.7 05/13/19 09:55 [place] Catheter Urine Culture - Final Staphylococcus Aureus 05/13/19 05/13/19 05/13/19 09:14 21:37 21:37 Creatine Kinase 414 H CK-MB (CK-2) 5.02 H Troponin I 0.025 0.122 NT-Pro-B Natriuret Pep 05/13/19 05/14/19 05/14/19 21:37 03:39 03:39 Creatine Kinase 516 H CK-MB (CK-2) 5.56 H Troponin I 1.590 NT-Pro-B Natriuret Pep 3770 H 05/14/19 05/14/19 05/15/19 09:25 09:25 08:50 Creatine Kinase 694 H CK-MB (CK-2) 7.53 H 1.82 Troponin I 0.971 0.406 NT-Pro-B Natriuret Pep Impressions: Head CT 05/13/19 09:18 IMPRESSION: Age-appropriate chronic white matter disease. Mild motion artifact. No acute findings. EVIDENCE OF ACUTE STROKE: NO. Abdomen X-Ray 05/13/19 20:55 IMPRESSION: No evidence for bowel obstruction. Chest X-Ray 05/14/19 07:48 IMPRESSION: Resolved alveolar and interstitial pulmonary edema. Chest/Abdomen CTA 05/14/19 18:49 IMPRESSION: 1. No CT evidence for pulmonary embolism. 2. Small bilateral pleural effusions and patchy bilateral alveolar interstitial infiltrates, likely pulmonary edema. 3. At least 50% stenosis at the origin of the left subclavian artery. Focal ulceration versus pseudoaneurysm at the left subclavian artery origin, without adjacent increased soft tissue density. This could be an acute localized pseudoaneurysm/dissection, with adjacent hemorrhage. 4. Hiatal hernia with diffuse esophageal wall thickening, suspicious for acute esophagitis. 5. Coronary artery calcifications. Assessment and Plan - Diagnosis (1) Sepsis Qualifiers: Sepsis type: sepsis due to unspecified organism Qualified Code(s): A41.9 - Sepsis, unspecified organism Is this a current diagnosis for this admission?: Yes Plan: 05/14: Likely secondary to urinary tract infection. On IV Rocephin. Blood culture grew gram-positive cocci 2/2 so far. No murmur appreciated on exam. Vancomycin was added last night. 05/15: Blood culture growing GPC in clusters. Continue Rocephin and vancomycin for now. No significant vegetations appreciated on TTE. (2) UTI (urinary tract infection) Is this a current diagnosis for this admission?: Yes Plan: Continue Rocephin. (3) Recent cerebrovascular accident (CVA) Is this a current diagnosis for this admission?: Yes Plan: Recent right MCA mechanical thrombectomy and a right ICA angioplasty on 05/07/2019. Her CVA symptoms particularly left-sided hemiparesis has completely resolved. Continue aspirin and Plavix. (4) Elevated troponin Is this a current diagnosis for this admission?: Yes Plan: 05/14: Troponin went up to 1.5. She did have congestion last night. She got relief from IV Lasix. Fluids have been held. She denies chest pain. This could be possibly type 2 OR/demand ischemia. Will consult cardiology for further recommendations. 05/15: Troponin has been trending down. He did not have any chest pain. Her EKG has been unremarkable. She may need ischemic work-up later once her acute issues resolved. - Time Time Spent with patient: 25-34 minutes
[2019-05-15] MEDS: VANCOMYCIN HCL 1,250 MG in DEXTROSE 5%-WATER 250 ML IV SCH (17:52)
[2019-05-15] MEDS: ATORVASTATIN CALCIUM 40 MG TABLET PO SCH ×2 (21:25→22:30)
[2019-05-16] MEDS: VANCOMYCIN HCL 1,250 MG in DEXTROSE 5%-WATER 250 ML IV SCH (05:23)
[2019-05-16] MEDS: LISINOPRIL 10 MG TABLET PO SCH (10:18)
[2019-05-16] MEDS: ASPIRIN 325 MG TABLET, ENT COATED PO SCH (10:18)
[2019-05-16] MEDS: CLOPIDOGREL BISULFATE 75 MG TABLET PO SCH ×2 (10:19→10:23)
[2019-05-16] MEDS: OMEGA-3 ACID ETHYL ESTERS 1 GM CAPSULE PO SCH ×2 (10:19→19:00)
[2019-05-16] MEDS: HEPARIN SOD (PORCINE) 5,000 UNIT/ML 1 ML VIAL SUBCUT SCH ×2 (10:20→21:16)
[2019-05-16] MEDS: ESTROGENS,CONJUGATED 0.3 MG TABLET PO SCH (10:24)
[2019-05-16] MEDS: FLUOXETINE HCL 20 MG CAPSULE PO SCH (10:24)
[2019-05-16] MEDS: CEFTRIAXONE SODIUM 1,000 MG in DEXTROSE 5%-WATER 50 ML IV SCH (10:28)
--- NOTE | 2019-05-16 11:35 | PDOC PROGRESS REPORT ---
Subjective Progress Note for:: 05/16/19 Subjective:: This is a 68 year old female with a past medical history of hypertension and recent right MCA CVA with mechanical thrombectomy and right ICA angioplasty advised and on 05/07/19 who is presenting with fever and chills. He was admitted for sepsis. Initial work-up was only remarkable for UTI as source of infection. She did complain of dysuria at home as well. She was given 3L of IV fluids in the ER and was continue normal saline. 05/14: Last night, patient developed shortness of breath. She became hypoxic and was put on BiPAP. Repeat chest x-ray showed bilateral infiltrates possibly congestion. Her fluids were stopped and she was given IV Lasix which gave her relief. She did have an elevation of her troponin at 1.5. She denies chest pain. This morning upon encounter, patient is more comfortable. She has been weaned off BiPAP and is saturating well on 2 L nasal cannula. She says his shortness of breath has resolved. As mentioned, she denies chest pain. We will try to wean her off O2. Blood cultures are growing gram-positive cocci 2/2. No murmur appreciated on exam. 05/15: No acute event overnight. She was weaned off O2 yesterday. She has been comfortable saturating well on room air. No fever overnight. Her pulmonary edema has resolved resolved with a dose of IV Lasix. She does not have any shortness of breath or chest pain. Chest CTA was also negative for PE. Initial report mentioned a questionable pseudoaneurysm versus dissection in the subclavian vessel. Discussed with radiologist chyron operator, Dr. Granados on who says that there is no dissection and this appears to be a plaque rather than a dissection. 05/16: No acute event overnight. Patient continues to do well. She is comfortable and saturating well on room air. She denies any shortness of breath or chest pain. She has been afebrile. Her first set of blood cultures are growing MSSA 2/2. Repeat blood culture is growing possibly the same organism 1/2 bottles so far. Reason For Visit: SEPSIS,UTI,RECENT CVA Physical Exam Vital Signs: Temp Pulse Resp BP Pulse Ox 98.0 F 71 14 151/61 H 97 05/16/19 07:38 05/16/19 07:38 05/16/19 07:38 05/16/19 07:38 05/16/19 07:38 Intake & Output 05/15/19 05/16/19 05/17/19 06:59 06:59 06:59 Intake Total 2147 550 300 Output Total 1330 775 Balance 817 -225 300 Weight 149 lb 4.047 oz 145 lb 4.554 oz General appearance: PRESENT: no acute distress, well-developed, well-nourished Head exam: PRESENT: atraumatic, normocephalic Eye exam: PRESENT: conjunctiva pink, EOMI, PERRLA. ABSENT: scleral icterus Ear exam: PRESENT: normal external ear exam Mouth exam: PRESENT: moist, tongue midline Neck exam: ABSENT: carotid bruit, JVD, lymphadenopathy, thyromegaly Respiratory exam: PRESENT: clear to auscultation jareth. ABSENT: rales, rhonchi, wheezes Cardiovascular exam: PRESENT: RRR. ABSENT: diastolic murmur, rubs, systolic murmur Pulses: PRESENT: normal dorsalis pedis pul GI/Abdominal exam: PRESENT: normal bowel sounds, soft. ABSENT: distended, guarding, mass, organolmegaly, rebound, tenderness Rectal exam: PRESENT: deferred Extremities exam: PRESENT: full ROM. ABSENT: calf tenderness, clubbing, pedal edema Neurological exam: PRESENT: alert, awake, oriented to person, oriented to place, oriented to time, oriented to situation, CN II-XII grossly intact. ABSENT: motor sensory deficit Results Laboratory Results: 05/15/19 04:08 05/15/19 04:08 05/14/19 17:02 Nasophary (Mrsa Only) MRSA Culture - Final NO MRSA RECOVERED 05/13/19 09:55 [place] Catheter Urine Culture - Final Staphylococcus Aureus 05/13/19 05/13/19 05/13/19 09:14 21:37 21:37 Creatine Kinase 414 H CK-MB (CK-2) 5.02 H Troponin I 0.025 0.122 NT-Pro-B Natriuret Pep 05/13/19 05/14/19 05/14/19 21:37 03:39 03:39 Creatine Kinase 516 H CK-MB (CK-2) 5.56 H Troponin I 1.590 NT-Pro-B Natriuret Pep 3770 H 05/14/19 05/14/1919 09:25 09:25 08:50 Creatine Kinase 694 H CK-MB (CK-2) 7.53 H 1.82 Troponin I 0.971 0.406 NT-Pro-B Natriuret Pep Impressions: Head CT 05/13/19 09:18 IMPRESSION: Age-appropriate chronic white matter disease. Mild motion artifact. No acute findings. EVIDENCE OF ACUTE STROKE: NO. Abdomen X-Ray 05/13/19 20:55 IMPRESSION: No evidence for bowel obstruction. Chest X-Ray 05/14/19 07:48 IMPRESSION: Resolved alveolar and interstitial pulmonary edema. Chest/Abdomen CTA 05/14/19 18:49 IMPRESSION: 1. No CT evidence for pulmonary embolism. 2. Small bilateral pleural effusions and patchy bilateral alveolar interstitial infiltrates, likely pulmonary edema. 3. At least 50% stenosis at the origin of the left subclavian artery. Focal ulceration versus pseudoaneurysm at the left subclavian artery origin, without adjacent increased soft tissue density. This could be an acute localized pseudoaneurysm/dissection, with adjacent hemorrhage. 4. Hiatal hernia with diffuse esophageal wall thickening, suspicious for acute esophagitis. 5. Coronary artery calcifications. Assessment and Plan - Diagnosis (1) Sepsis Qualifiers: Sepsis type: sepsis due to unspecified organism Qualified Code(s): A41.9 - Sepsis, unspecified organism Is this a current diagnosis for this admission?: Yes Plan: 05/14: Likely secondary to urinary tract infection. On IV Rocephin. Blood culture grew gram-positive cocci 2/2 so far. No murmur appreciated on exam. Vancomycin was added last night. 05/15: Blood culture growing GPC in clusters. Continue Rocephin and vancomycin for now. No significant vegetations appreciated on TTE. 05/16: Her first set of blood cultures are growing MSSA 2/2. Repeat blood culture is growing possibly the same organism 1/2 bottles so far. Her urine culture is growing MSSA as well. She did complain of initial dysuria. MSSA does not typically cause urinary tract infection. Will consult infectious disease service for further recommendation. Currently on vancomycin and Rocephin. Will discontinue vancomycin. She did have recent instrumentation as she had two femoral cath approaches due to difficult access for her mechanical thrombectomy and carotid angioplasty and stenting at [facility] more than a week ago. Will pursue a JILLIAN to rule out endocarditis. Discussed with Dr. Doshi who does have the same recommendation to proceed with JILLIAN. Discussed plan of care with ted ent who is amenable to pursuing a JILLIAN. (2) UTI (urinary tract infection) Is this a current diagnosis for this admission?: Yes Plan: Urine culture is growing MSSA. Discontinue vancomycin. Continue Rocephin. Will consult ID for further recommendations. (3) Recent cerebrovascular accident (CVA) Is this a current diagnosis for this admission?: Yes Plan: Recent right MCA mechanical thrombectomy and a right ICA angioplasty on 05/07/2019. Her CVA symptoms particularly left-sided hemiparesis has completely resolved. Continue aspirin and Plavix. (4) Elevated troponin Is this a current diagnosis for this admission?: Yes Plan: 05/14: Troponin went up to 1.5. She did have congestion last night. She got relief from IV Lasix. Fluids have been held. She denies chest pain. This could be possibly type 2 VT/demand ischemia. Will consult cardiology for further recommendations. 05/15: Troponin has been trending down. He did not have any chest pain. Her EKG has been unremarkable. She may need ischemic work-up later once her acute issues resolved. 05/16: Troponin trended down. She did have any chest pain or shortness of breath or EKG changes. Troponin elevation was associated when she developed pulmonary edema the night of admission. This could be demand ischemia from the congestion . She will need outpatient ischemic work-up. Pursuing a JILLIAN to rule out endocarditis. - Time Time Spent with patient: 25-34 minutes
[2019-05-16] MEDS ORDERED: POTASSIUM CHLORIDE 10 MEQ CAPSULE.ER PO ONE ×2 (11:54→15:13)
[2019-05-16] MEDS: ATORVASTATIN CALCIUM 40 MG TABLET PO SCH (21:15)
[2019-05-17 06:44] LABS: ABSOLUTE BASOPHILS # (AUTO) 0.1 10^3/uL (0.0-0.2); ABSOLUTE EOSINOPHILS # (AUTO) 0.2 10^3/uL (0.0-0.6); ABSOLUTE LYMPHOCYTES (AUTO) 1.5 10^3/uL (0.5-4.7); ABSOLUTE MONOCYTES (AUTO) 0.8 10^3/uL (0.1-1.4); ABSOLUTE NEUT (AUTO) 5.1 10^3/uL (1.7-8.2); BASOPHILS % (AUTO) 1.4 % (0-2); EOSINOPHILS % (AUTO) 2.8 % (0-6); HEMATOCRIT 26.2 % (36.0-47.0); HEMOGLOBIN 8.8 g/dL (12.0-15.5); LYMPHOCYTES % (AUTO) 19.2 % (13-45); MEAN CORPUSCULAR HEMOGLOBIN 30.2 pg (27.0-33.4); MEAN CORPUSCULAR HGB CONC 33.8 g/dL (32.0-36.0); MEAN CORPUSCULAR VOLUME 90 fl (80-97); MONOCYTES % (AUTO) 10.3 % (3-13); PLATELET COUNT 348 10^3/uL (150-450); RED BLOOD COUNT 2.92 10^6/uL (3.72-5.28); RED CELL DISTRIBUTION WIDTH 13.8 % (11.5-14.0); SEGMENTED NEUTROPHILS % (AUTO) 66.3 % (42-78); TOTAL CELLS COUNTED % (AUTO) 100 %; WHITE BLOOD COUNT 7.7 10^3/uL (4.0-10.5)
[2019-05-17 06:59] LABS: ANION GAP 7 (5-19); BLOOD UREA NITROGEN 6 mg/dL (7-20); CALCIUM 9.2 mg/dL (8.4-10.2); CARBON DIOXIDE 28 mmol/L (22-30); CHLORIDE 105 mmol/L (98-107); GLUCOSE 100 mg/dL (75-110); POTASSIUM 4.2 mmol/L (3.6-5.0); VANCOMYCIN,TROUGH 5.5 ug/mL (5.0-20.0)
[2019-05-17] MEDS: LISINOPRIL 10 MG TABLET PO SCH (09:39)
[2019-05-17] MEDS: ASPIRIN 325 MG TABLET, ENT COATED PO SCH (09:39)
[2019-05-17] MEDS: FLUOXETINE HCL 20 MG CAPSULE PO SCH (09:39)
[2019-05-17] MEDS: CLOPIDOGREL BISULFATE 75 MG TABLET PO SCH (09:39)
[2019-05-17] MEDS: ESTROGENS,CONJUGATED 0.3 MG TABLET PO SCH (09:39)
[2019-05-17] MEDS: HEPARIN SOD (PORCINE) 5,000 UNIT/ML 1 ML VIAL SUBCUT SCH ×2 (09:40→21:47)
[2019-05-17] MEDS: OMEGA-3 ACID ETHYL ESTERS 1 GM CAPSULE PO SCH ×2 (09:40→17:10)
[2019-05-17] MEDS: CEFTRIAXONE SODIUM 1,000 MG in DEXTROSE 5%-WATER 50 ML IV SCH (09:40)
--- NOTE | 2019-05-17 11:22 | PDOC PROGRESS REPORT ---
Subjective Progress Note for:: 05/17/19 Subjective:: This is a 68 year old female with a past medical history of hypertension and recent right MCA CVA with mechanical thrombectomy and right ICA angioplasty advised and on 05/07/19 who is presenting with fever and chills. He was admitted for sepsis. Initial work-up was only remarkable for UTI as source of infection. She did complain of dysuria at home as well. She was given 3L of IV fluids in the ER and was continue normal saline. 05/14: Last night, patient developed shortness of breath. She became hypoxic and was put on BiPAP. Repeat chest x-ray showed bilateral infiltrates possibly congestion. Her fluids were stopped and she was given IV Lasix which gave her relief. She did have an elevation of her troponin at 1.5. She denies chest pain. This morning upon encounter, patient is more comfortable. She has been weaned off BiPAP and is saturating well on 2 L nasal cannula. She says his shortness of breath has resolved. As mentioned, she denies chest pain. We will try to wean her off O2. Blood cultures are growing gram-positive cocci 2/2. No murmur appreciated on exam. 05/15: She was weaned off O2 yesterday. She has been comfortable saturating well on room air. No fever overnight. Her pulmonary edema has resolved resolved with a dose of IV Lasix. She does not have any shortness of breath or chest pain. Chest CTA was also negative for PE. Initial report mentioned a questionable pseudoaneurysm versus dissection in the subclavian vessel. Discussed with radiologist contact clerk, Dr. Granados on who says that there is no dissection and this appears to be a plaque rather than a dissection. 05/16: Patient continues to do well. She is comfortable and saturating well on room air. She denies any shortness of breath or chest pain. She has been afebrile. Her first set of blood cultures are growing MSSA 2/2. Repeat blood culture is growing possibly the same organism 1/2 bottles so far. 05/17: No acute event overnight. She continues to do well. She denies any acute complaint. Denies shortness of breath or chest pain. Her 2nd set of blood cultures are growing GPC. No recurrence of fever. She is going for a JILLIAN at [facility] later today. She does say she had back surgeries before. She does not complain of any back pain or tenderness. No tenderness on palpation of the spine. Reason For Visit: SEPSIS,UTI,RECENT CVA Physical Exam Vital Signs: Temp Pulse Resp BP Pulse Ox 97.7 F 76 20 148/69 H 99 05/17/19 08:07 05/17/19 08:07 05/17/19 08:07 05/17/19 08:07 05/17/19 08:07 Intake & Output 05/16/19 05/17/19 05/18/19 06:59 06:59 06:59 Intake Total 550 300 50 Output Total 775 500 Balance -225 -200 50 Weight 145 lb 4.554 oz 143 lb 4.807 oz General appearance: PRESENT: no acute distress, well-developed, well-nourished Head exam: PRESENT: atraumatic, normocephalic Eye exam: PRESENT: conjunctiva pink, EOMI, PERRLA. ABSENT: scleral icterus Ear exam: PRESENT: normal external ear exam Mouth exam: PRESENT: moist, tongue midline Neck exam: ABSENT: carotid bruit, JVD, lymphadenopathy, thyromegaly Respiratory exam: PRESENT: clear to auscultation jareth. ABSENT: rales, rhonchi, wheezes Cardiovascular exam: PRESENT: RRR. ABSENT: diastolic murmur, rubs, systolic murmur Pulses: PRESENT: normal dorsalis pedis pul GI/Abdominal exam: PRESENT: normal bowel sounds, soft. ABSENT: distended, guarding, mass, organolmegaly, rebound, tenderness Rectal exam: PRESENT: deferred Extremities exam: PRESENT: full ROM. ABSENT: calf tenderness, clubbing, pedal edema Neurological exam: PRESENT: alert, awake, oriented to person, oriented to place, oriented to time, oriented to situation, CN II-XII grossly intact. ABSENT: motor sensory deficit Results Laboratory Results: 05/17/19 05:54 05/17/19 05:54 05/17/19 05/17/19 05:54 05:54 WBC 7.7 RBC 2.92 L Hgb 8.8 L Hct 26.2 L MCV 90 MCH 30.2 MCHC 33.8 RDW 13.8 Plt Count 348 Seg Neutrophils % 66.3 Lymphocytes % 19.2 Monocytes % 10.3 Eosinophils % 2.8 Basophils % 1.4 Absolute Neutrophils 5.1 Absolute Lymphocytes 1.5 Absolute Monocytes 0.8 Absolute Eosinophils 0.2 Absolute Basophils 0.1 Sodium 139.5 Potassium 4.2 Chloride 105 Carbon Dioxide 28 Anion Gap 7 BUN 6 L Creatinine 0.46 L Est GFR ( Amer) > 60 Est GFR (Non-Af Amer) > 60 Glucose 100 Calcium 9.2 05/13/19 09:14 Blood Blood Culture - Final Staphylococcus Aureus 05/13/19 11:18 Blood Blood Culture - Final Staphylococcus Aureus 05/14/19 17:02 Nasophary (Mrsa Only) MRSA Culture - Final NO MRSA RECOVERED 05/13/19 05/13/19 05/13/19 09:14 21:37 21:37 Creatine Kinase 414 H CK-MB (CK-2) 5.02 H Troponin I 0.025 0.122 NT-Pro-B Natriuret Pep 05/13/19 05/14/19 05/14/19 21:37 03:39 03:39 Creatine Kinase 516 H CK-MB (CK-2) 5.56 H Troponin I 1.590 NT-Pro-B Natriuret Pep 3770 H 05/14/19 05/14/19 05/15/19 09:25 09:25 08:50 Creatine Kinase 694 H CK-MB (CK-2) 7.53 H 1.82 Troponin I 0.971 0.406 NT-Pro-B Natriuret Pep 05/17/19 05:54 Creatine Kinase CK-MB (CK-2) Troponin I 0.113 NT-Pro-B Natriuret Pep Impressions: Head CT 05/13/19 09:18 IMPRESSION: Age-appropriate chronic white matter disease. Mild motion artifact. No acute findings. EVIDENCE OF ACUTE STROKE: NO. Abdomen X-Ray 05/13/19 20:55 IMPRESSION: No evidence for bowel obstruction. Chest X-Ray 05/14/19 07:48 IMPRESSION: Resolved alveolar and interstitial pulmonary edema. Chest/Abdomen CTA 05/14/19 18:49 IMPRESSION: 1. No CT evidence for pulmonary embolism. 2. Small bilateral pleural effusions and patchy bilateral alveolar interstitial infiltrates, likely pulmonary edema. 3. At least 50% stenosis at the origin of the left subclavian artery. Focal ulceration versus pseudoaneurysm at the left subclavian artery origin, without adjacent increased soft tissue density. This could be an acute localized pseudoaneurysm/dissection, with adjacent hemorrhage. 4. Hiatal hernia with diffuse esophageal wall thickening, suspicious for acute esophagitis. 5. Coronary artery calcifications. Assessment and Plan - Diagnosis (1) Sepsis Qualifiers: Sepsis type: sepsis due to unspecified organism Qualified Code(s): A41.9 - Sepsis, unspecified organism Is this a current diagnosis for this admission?: Yes Plan: 05/14: Likely secondary to urinary tract infection. On IV Rocephin. Blood culture grew gram-positive cocci 2/2 so far. No murmur appreciated on exam. Vancomycin was added last night. 05/15: Blood culture growing GPC in clusters. Continue Rocephin and vancomycin for now. No significant vegetations appreciated on TTE. 05/16: Her first set of blood cultures are growing MSSA 2/2. Repeat blood culture is growing possibly the same organism 1/2 bottles so far. Her urine culture is growing MSSA as well. She did complain of initial dysuria. MSSA does not typically cause urinary tract infection. Will consult infectious disease service for further recommendation. Currently on vancomycin and Rocephin. Will discontinue vancomycin. She did have recent instrumentation as she had two femoral cath approaches due to difficult access for her mechanical thrombectomy and carotid angioplasty and stenting at [facility] more than a week ago. Will pursue a JILLIAN to rule out endocarditis. Discussed with Dr. Doshi who does have the same recommendation to proceed with JILLIAN. Discussed plan of care with gabriel guevara who is amenable to pursuing a JILLIAN. 05/17: Clinically improving. Her 2nd set of blood cultures are growing GPC. No recurrence of fever. She is going for a JILLIAN at [facility] later today. [place] DCed. Continue Rocephin. Await further ID recommendations. (2) UTI (urinary tract infection) Is this a current diagnosis for this admission?: Yes Plan: Urine culture is growing MSSA. Discontinued vancomycin. Continue Rocephin. Aw ait further ID recommendations. (3) Recent cerebrovascular accident (CVA) Is this a current diagnosis for this admission?: Yes Plan: Recent right MCA mechanical thrombectomy and a right ICA angioplasty on 05/07/2019. Her CVA symptoms particularly left-sided hemiparesis has completely resolved. Continue aspirin and Plavix. (4) Elevated troponin Is this a current diagnosis for this admission?: Yes Plan: 05/14: Troponin went up to 1.5. She did have congestion last night. She got relief from IV Lasix. Fluids have been held. She denies chest pain. This coul d be possibly type 2 LA/demand ischemia. Will consult cardiology for further recommendations. 05/15: Troponin has been trending down. He did not have any chest pain. Her EKG has been unremarkable. She may need ischemic work-up later once her acute issues resolved. 05/16: Troponin trended down. She did have any chest pain or shortness of breath or EKG changes. Troponin elevation was associated when she developed pulmonary edema the night of admission. This could be demand ischemia from the c ongestion. She will need outpatient ischemic work-up. Pursuing a JILLIAN to rule out endocarditis. 05/17: Trended down to 0.1. - Time Time Spent with patient: 25-34 minutes
[2019-05-17] MEDS: ATORVASTATIN CALCIUM 40 MG TABLET PO SCH (21:45)
--- NOTE | 2019-05-18 08:25 | Progress Note ---
Provider Note Provider Note: ID Consult - Brief Note Asked to review chart. Pt has MSSA bacteremia; potentially related to recent procedure - infrequently occurs but risk exists with any percutaneous vascular intervention. Evaluation and management appears appropriate and thorough Would suggest one change, however - would switch to cefazolin. Rocephin has anti-MSSA activity and can be an alternative agent for treatment of MSSA osteoarticular infections, but it is generally not an agent that would be recommended up front for MSSA bacteremia. Limited quality studies have mixed data regarding its use in treatment of MSSA bacteremia. Would recommend treating the patient with one of the first line agents for MSSA bacteremia - either an IV antistaphylococcal penicillin (IV nafcillin 12 grams in a day or oxacillin) or a first generation IV cephalosporin (cefazolin 2 g q8h or 6 grams as a continuous infusion as long as CrCl >30). The latter is better tolerated. Would treat patient with cefazolin while an inpatient and encourage continuing the same as an outpatient. The bacteremia appears to be complicated in nature and will require at least 4 weeks of treatment from date of blood culture clearance. If pt has infective endocarditis, extend treatment to 6 weeks from blood culture clearance; would do the same if the patient is discovered to have other endovascular complications (e.g. mycotic aneurysm) or vertebral osteomyelitis/discitis during the course of her therapy. Thus far, the latter has not been evident based on history/exam. Placement of PICC line should await negative blood cultures for at least 48h. Oseas Mims MD [facility] Infectious Diseases pager [phone]
[2019-05-18] MEDS ORDERED: CEFAZOLIN 2 GM/D5W RTU 2 GM/50 ML RTUPB IV SCH (14:00)
[2019-05-18] MEDS: OMEGA-3 ACID ETHYL ESTERS 1 GM CAPSULE PO SCH ×2 (16:21→17:15)
[2019-05-18] MEDS: LISINOPRIL 10 MG TABLET PO SCH (16:21)
[2019-05-18] MEDS: HEPARIN SOD (PORCINE) 5,000 UNIT/ML 1 ML VIAL SUBCUT SCH ×2 (16:21→22:33)
[2019-05-18] MEDS: ESTROGENS,CONJUGATED 0.3 MG TABLET PO SCH (16:21)
[2019-05-18] MEDS: CLOPIDOGREL BISULFATE 75 MG TABLET PO SCH (16:21)
[2019-05-18] MEDS: ASPIRIN 325 MG TABLET, ENT COATED PO SCH (16:21)
[2019-05-18] MEDS: FLUOXETINE HCL 20 MG CAPSULE PO SCH (16:22)
[2019-05-18] MEDS: CEFAZOLIN SODIUM 2 GM in DEXTROSE 5%-WATER 100 ML IV SCH ×2 (16:23→22:32)
[2019-05-18] MEDS: CEFTRIAXONE SODIUM 1,000 MG in DEXTROSE 5%-WATER 50 ML IV SCH (16:25)
--- NOTE | 2019-05-18 16:53 | Progress Note Acknowledgement ---
Progress Note Acknowledgement Progess Note Acknowledgement: I, the undersigned member of the medical staff with appropriate privileges and with supervisory authority over [ PAC ], a dependent practice allied health professional, acknowledge that I have reviewed the progress notes entered on this patient, and in my professional judgment believe that the assessment made and/or any care evidenced was appropriate
--- NOTE | 2019-05-18 17:00 | PDOC PROGRESS REPORT ---
Subjective Progress Note for:: 05/18/19 Subjective:: 05/18/2019 patient was admitted to the hospital on May 13 with fever, chills, leukocytosis. Patient had recently on undergone a thrombectomy advised at [facility] for CVA due to the possibility of infection patient was admitted to the hospital for IV antibiotics. Patient was seen by infectious disease yesterday it was recommended that we change antibiotics to ceftezole. Per infectious disease the patient will need IV antibiotics for 4 weeks but a PICC line should not be placed until the patient has had 48 hours showing negative blood cultures JILLIAN was performed today at [facility] with the results pending. On admission white count was 14,202 days ago it was 7.7 hemoglobin has stabilized at 8.8 patient has been afebrile for 48 hours blood pressure 151/60, patient is growing out staph aureus in her urine and blood Reason For Visit: SEPSIS,UTI,RECENT CVA Physical Exam Vital Signs: Temp Pulse Resp BP Pulse Ox 98.0 F 75 16 151/60 H 98 05/18/19 07:36 05/18/19 07:36 05/18/19 07:36 05/18/19 07:36 05/18/19 07:36 Intake & Output 05/17/19 05/18/19 05/19/19 06:59 06:59 06:59 Intake Total 300 842 Output Total 500 550 Balance -200 292 Weight 65 kg 63.5 kg General appearance: PRESENT: no acute distress, well-developed, well-nourished, other - Patient is talking and smiling and appears to be in no distress Head exam: PRESENT: atraumatic, normocephalic Respiratory exam: PRESENT: clear to auscultation jareth. ABSENT: rales, rhonchi, wheezes Cardiovascular exam: PRESENT: RRR. ABSENT: diastolic murmur, rubs, systolic mur mur Neurological exam: PRESENT: alert, awake, oriented to person, oriented to place, oriented to time, oriented to situation, CN II-XII grossly intact, other - Patient denies back pain, her back surgery was February 2018. ABSENT: motor sensory deficit Psychiatric exam: PRESENT: appropriate affect, normal mood, other - Patient is pleasant in no distress, is in the room at the bedside. ABSENT: homicidal ideation, suicidal ideation Results Laboratory Results: 05/17/19 05:54 05/17/19 05:54 05/15/19 09:46 Blood Blood Culture - Final Staphylococcus Aureus 05/13/19 09:14 Blood Blood Culture - Final Staphylococcus Aureus 05/13/19 11:18 Blood Blood Culture - Final Staphylococcus Aureus 05/13/19 05/13/19 05/13/19 09:14 21:37 21:37 Creatine Kinase 414 H CK-MB (CK-2) 5.02 H Troponin I 0.025 0.122 NT-Pro-B Natriuret Pep 05/13/19 05/14/19 05/14/19 21:37 03:39 03:39 Creatine Kinase 516 H CK-MB (CK-2) 5.56 H Troponin I 1.590 NT-Pro-B Natriuret Pep 3770 H 05/14/19 05/14/19 05/15/19 09:25 09:25 08:50 Creatine Kinase 694 H CK-MB (CK-2) 7.53 H 1.82 Troponin I 0.971 0.406 NT-Pro-B Natriuret Pep 05/17/19 05:54 Creatine Kinase CK-MB (CK-2) Troponin I 0.113 NT-Pro-B Natriuret Pep Impressions: Head CT 05/13/19 09:18 IMPRESSION: Age-appropriate chronic white matter disease. Mild motion artifact. No acute findings. EVIDENCE OF ACUTE STROKE: NO. Abdomen X-Ray 05/13/19 20:55 IMPRESSION: No evidence for bowel obstruction. Chest X-Ray 05/14/19 07:48 IMPRESSION: Resolved alveolar and interstitial pulmonary edema. Chest/Abdomen CTA 05/14/19 18:49 IMPRESSION: 1. No CT evidence for pulmonary embolism. 2. Small bilateral pleural effusions and patchy bilateral alveolar interstitial infiltrates, likely pulmonary edema. 3. At least 50% stenosis at the origin of the left subclavian artery. Focal ulceration versus pseudoaneurysm at the left subclavian artery origin, without adjacent increased soft tissue density. This could be an acute localized pseudoaneurysm/dissection, with adjacent hemorrhage. 4. Hiatal hernia with diffuse esophageal wall thickening, suspicious for acute esophagitis. 5. Coronary artery calcifications. Assessment and Plan - Diagnosis (1) Recent cerebrovascular accident (CVA) Is this a current diagnosis for this admission?: Yes Plan: Recent right MCA mechanical thrombectomy and a right ICA angioplasty on 05/07/2019. Her CVA symptoms particularly left-sided hemiparesis has completely resolved. Continue aspirin and Plavix. 05/18/2019 patient currently on aspirin and Plavix with no residual from her CVA (2) Sepsis Qualifiers: Sepsis type: sepsis due to unspecified organism Qualified Code(s): A41.9 - Sepsis, unspecified organism Is this a current diagnosis for this admission?: Yes Plan: 05/14: Likely secondary to urinary tract infection. On IV Rocephin. Blood culture grew gram-positive cocci 2/2 so far. No murmur appreciated on exam. Vancomycin was added last night. 05/15: Blood culture growing GPC in clusters. Continue Rocephin and vancomycin for now. No significant vegetations appreciated on TTE. 05/16: Her first set of blood cultures are growing MSSA 2/2. Repeat blood culture is growing possibly the same organism 1/2 bottles so far. Her urine culture is growing MSSA as well. She did complain of initial dysuria. MSSA does not typically cause urinary tract infection. Will consult infectious disease service for further recommendation. Currently on vancomycin and Rocephin. Will discontinue vancomycin. She did have recent instrumentation as she had two femoral cath approaches due to difficult access for her mechanical thrombectomy and carotid angioplasty and stenting at [facility] more than a week ago. Will pursue a JILLIAN to rule out endocarditis. Discussed with Dr. Doshi who does have the same recommendation to proceed with JILLIAN. Discussed plan of care with patient who is amenable to pursuing a JLILIAN. 05/17: Clinically improving. Her 2nd set of blood cultures are growing GPC. No recurrence of fever. She is going for a JILLIAN at [facility] later today. Patric Camarenad. Continue Rocephin. Await further ID recommendations. 05/18/2019 Patient had a JILLIAN today at [facility] results are pending, Rocephin was discontinued and ceftazolin was added per recommendation by infectious disease. Patient is afebrile blood pressure 151/60 white count has gone down to 7.7 Patient will need IV antibiotics for 4 weeks at least (3) UTI (urinary tract infection) Is this a current diagnosis for this admission?: Yes Plan: Urine culture is growing MSSA. Discontinued vancomycin. Continue Rocephin. Await further ID recommendations. 05/18/2019 discontinue Rocephin start ceftezolin. Patient is growing out staph aureus in her urine - Time Time Spent with patient: 25-34 minutes
[2019-05-18 18:00] LABS: ANION GAP 16 (5-19); BLOOD UREA NITROGEN 9 mg/dL (7-20); CALCIUM 9.7 mg/dL (8.4-10.2); CARBON DIOXIDE 21 mmol/L (22-30); CHLORIDE 101 mmol/L (98-107); GLUCOSE 108 mg/dL (75-110)
[2019-05-18 18:47] LABS: ABSOLUTE BASOPHILS # (AUTO) 0.1 10^3/uL (0.0-0.2); ABSOLUTE EOSINOPHILS # (AUTO) 0.2 10^3/uL (0.0-0.6); ABSOLUTE LYMPHOCYTES (AUTO) 1.4 10^3/uL (0.5-4.7); ABSOLUTE MONOCYTES (AUTO) 0.9 10^3/uL (0.1-1.4); ABSOLUTE NEUT (AUTO) 6.2 10^3/uL (1.7-8.2); BASOPHILS % (AUTO) 1.6 % (0-2); EOSINOPHILS % (AUTO) 1.8 % (0-6); HEMATOCRIT 29.4 % (36.0-47.0); HEMOGLOBIN 9.8 g/dL (12.0-15.5); LYMPHOCYTES % (AUTO) 16.3 % (13-45); MEAN CORPUSCULAR HEMOGLOBIN 30.2 pg (27.0-33.4); MEAN CORPUSCULAR HGB CONC 33.4 g/dL (32.0-36.0); MEAN CORPUSCULAR VOLUME 90 fl (80-97); MONOCYTES % (AUTO) 9.7 % (3-13); PLATELET COUNT 390 10^3/uL (150-450); RED BLOOD COUNT 3.26 10^6/uL (3.72-5.28); RED CELL DISTRIBUTION WIDTH 13.9 % (11.5-14.0); SEGMENTED NEUTROPHILS % (AUTO) 70.6 % (42-78); TOTAL CELLS COUNTED % (AUTO) 100 %; WHITE BLOOD COUNT 8.8 10^3/uL (4.0-10.5)
[2019-05-18] MEDS: ATORVASTATIN CALCIUM 40 MG TABLET PO SCH (22:33)
[2019-05-19] MEDS: CEFAZOLIN SODIUM 2 GM in DEXTROSE 5%-WATER 100 ML IV SCH ×3 (06:04→21:25)
[2019-05-19] MEDS: OMEGA-3 ACID ETHYL ESTERS 1 GM CAPSULE PO SCH ×2 (09:11→18:00)
[2019-05-19] MEDS: FLUOXETINE HCL 20 MG CAPSULE PO SCH (09:11)
[2019-05-19] MEDS: ASPIRIN 325 MG TABLET, ENT COATED PO SCH (09:11)
[2019-05-19] MEDS: HEPARIN SOD (PORCINE) 5,000 UNIT/ML 1 ML VIAL SUBCUT SCH ×2 (09:11→21:25)
[2019-05-19] MEDS: CLOPIDOGREL BISULFATE 75 MG TABLET PO SCH (09:11)
[2019-05-19] MEDS: LISINOPRIL 10 MG TABLET PO SCH (09:11)
--- NOTE | 2019-05-19 10:30 | PDOC PROGRESS REPORT ---
Subjective Progress Note for:: 05/19/19 Subjective:: 05/18/2019 patient was admitted to the hospital on May 13 with fever, chills, leukocytosis. [facility] the [facility] of infection patient was admitted to the hospital for IV antibiotics. Patient was seen by infectious disease yesterday it was recommended that we change antibiotics to ceftezole. Per infectious disease the patient will need IV antibiotics for 4 weeks but a PICC line should not be placed until the patient has had 48 hours showing negative blood cultures JILLIAN was performed today at [facility] with the results pending. On admission white count was 14,202 days ago it was 7.7 hemoglobin has stabilized at 8.8 patient has been afebrile for 48 hours blood pressure 151/60, patient is growing out staph aureus in her urine and blood 05/19/2019 remains medically stable no fever temperature 98.4 blood pressure 138/66 sat 99% on room air. White count 8800 and H9.8 29.4, electrolytes are normal. Her graph second day of ceftezole and IV, last blood culture 48 hours ago was negative We will put an order in for PICC line tomorrow and possibly DC home on antibiotics Friday Reason For Visit: SEPSIS,UTI,RECENT CVA Physical Exam Vital Signs: Temp Pulse Resp BP Pulse Ox 98.4 F 74 14 138/66 H 99 05/19/19 07:59 05/19/19 07:59 05/19/19 07:59 05/19/19 07:59 05/19/19 07:59 Intake & Output 05/18/19 05/19/19 05/20/19 06:59 06:59 06:59 Intake Total 842 300 100 Output Total 550 500 Balance 292 -200 100 Weight 63.5 kg 63.5 kg General appearance: PRESENT: no acute distress, well-developed, well-nourished Respiratory exam: PRESENT: clear to auscultation jareth. ABSENT: rales, rhonchi, wheezes Cardiovascular exam: PRESENT: RRR. ABSENT: diastolic murmur, rubs, systolic murmur Neurological exam: PRESENT: alert, awake, oriented to person, oriented to place, oriented to time, oriented to situation, CN II-XII grossly intact. ABSENT: motor sensory deficit Psychiatric exam: PRESENT: appropriate affect, normal mood. ABSENT: homicidal ideation, suicidal ideation Results Laboratory Results: 05/18/19 18:23 05/18/19 17:28 05/18/19 05/18/19 05/18/19 17:28 17:28 18:23 WBC Cancelled 8.8 RBC Cancelled 3.26 L Hgb Cancelled 9.8 L Hct Cancelled 29.4 L MCV Cancelled 90 MCH Cancelled 30.2 MCHC Cancelled 33.4 RDW Cancelled 13.9 Plt Count Cancelled 390 Seg Neutrophils % Cancelled 70.6 Lymphocytes % Cancelled 16.3 Monocytes % Cancelled 9.7 Eosinophils % Cancelled 1.8 Basophils % Cancelled 1.6 Absolute Neutrophils Cancelled 6.2 Absolute Lymphocytes Cancelled 1.4 Absolute Monocytes Cancelled 0.9 Absolute Eosinophils Cancelled 0.2 Absolute Basophils Cancelled 0.1 Sodium 137.7 Potassium 4.0 Chloride 101 Carbon Dioxide 21 L Anion Gap 16 BUN 9 Creatinine 0.48 L Est GFR ( Amer) > 60 Est GFR (Non-Af Amer) > 60 Glucose 108 Calcium 9.7 05/15/19 09:46 Blood Blood Culture - Final Staphylococcus Aureus 05/13/19 09:14 Blood Blood Culture - Final Staphylococcus Aureus 05/13/19 11:18 Blood Blood Culture - Final Staphylococcus Aureus 05/13/19 05/13/19 05/13/19 09:14 21:37 21:37 Creatine Kinase 414 H CK-MB (CK-2) 5.02 H Troponin I 0.025 0.122 NT-Pro-B Natriuret Pep 05/13/19 05/14/19 05/14/19 21:37 03:39 03:39 Creatine Kinase 516 H CK-MB (CK-2) 5.56 H Troponin I 1.590 NT-Pro-B Natriuret Pep 3770 H 05/14/19 05/14/19 05/15/19 09:25 09:25 08:50 Creatine Kinase 694 H CK-MB (CK-2) 7.53 H 1.82 Troponin I 0.971 0.406 NT-Pro-B Natriuret Pep 05/17/19 05:54 Creatine Kinase CK-MB (CK-2) Troponin I 0.113 NT-Pro-B Natriuret Pep Impressions: Head CT 05/13/19 09:18 IMPRESSION: Age-appropriate chronic white matter disease. Mild motion artifact. No acute findings. EVIDENCE OF ACUTE STROKE: NO. Abdomen X-Ray 05/13/19 20:55 IMPRESSION: No evidence for bowel obstruction. Chest X-Ray 05/14/19 07:48 IMPRESSION: Resolved alveolar and interstitial pulmonary edema. Chest/Abdomen CTA 05/14/19 18:49 IMPRESSION: 1. No CT evidence for pulmonary embolism. 2. Small bilateral pleural effusions and patchy bilateral alveolar interstitial infiltrates, likely pulmonary edema. 3. At least 50% stenosis at the origin of the left subclavian artery. Focal ulceration versus pseudoaneurysm at the left subclavian artery origin, without adjacent increased soft tissue density. This could be an acute localized pseudoaneurysm/dissection, with adjacent hemorrhage. 4. Hiatal hernia with diffuse esophageal wall thickening, suspicious for acute esophagitis. 5. Coronary artery calcifications. Assessment and Plan - Diagnosis (1) Recent cerebrovascular accident (CVA) Is this a current diagnosis for this admission?: Yes Plan: Recent right MCA mechanical thrombectomy and a right ICA angioplasty on 05/07/2019. Her CVA symptoms particularly left-sided hemiparesis has completely resolved. Continue aspirin and Plavix. 05/18/2019 patient currently on aspirin and Plavix with no residual from her CVA 05/19/2019 patient has no neurologic deficits patient is on aspirin and Plavix. (2) Sepsis Qualifiers: Sepsis type: sepsis due to unspecified organism Qualified Code(s): A41.9 - Sepsis, unspecified organism Is this a current diagnosis for this admission?: Yes Plan: 05/14: Likely secondary to urinary tract infection. On IV Rocephin. Blood culture grew gram-positive cocci 2/2 so far. No murmur appreciated on exam. Vancomycin was added last night. 05/15: Blood culture growing GPC in clusters. Continue Rocephin and vancomycin for now. No significant vegetations appreciated on TTE. 05/16: Her first set of blood cultures are growing MSSA 2/2. Repeat blood culture is growing possibly the same organism 1/2 bottles so far. Her urine culture is growing MSSA as well. She did complain of initial dysuria. MSSA does not typically cause urinary tract infection. Will consult infectious disease service for further recommendation. Currently on vancomycin and Rocephin. Will discontinue vancomycin. She did have recent instrumentation as she had two femoral cath approaches due to difficult access for her mechanical thrombectomy and carotid angioplasty and stenting at [facility] more than a week ago. Will pursue a JILLIAN to rule out endocarditis. Discussed with Dr. Doshi who does have the same recommendation to proceed with JILLIAN. Discussed plan of care with patient who is amenable to pursuing a JILLIAN. 05/17: Clinically improving. Her 2nd set of blood cultures are growing GPC. No recurrence of fever. She is going for a JILLIAN at [facility] later today. Patric Watson. Continue Rocephin. Await further ID recommendations. 05/18/2019 Patient had a JILLIAN today at [facility] results are pending, Rocephin was discontinued and ceftazolin was added per recommendation by infectious disease. Patient is afebrile blood pressure 151/60 white count has gone down to 7.7 Patient will need IV antibiotics for 4 weeks at least 05/19/2019 nursing will try to call and get the results from the JILLIAN yesterday. Patient patient is hemodynamically stable to 138/66 temp 98 4 white count 8.8 (3) UTI (urinary tract infection) Is this a current diagnosis for this admission?: Yes Plan: Urine culture is growing MSSA. Discontinued vancomycin. Continue Rocephin. Await further ID recommendations. 05/18/2019 discontinue Rocephin start ceftezolin. Patient is growing out staph aureus in her urine 05/19/2019 last blood culture was reported negative on 05 17. Patient has no dysuria no fever - Time Time Spent with patient: 25-34 minutes
[2019-05-19] MEDS: ESTROGENS,CONJUGATED 0.3 MG TABLET PO SCH (11:13)
[2019-05-19] MEDS: ATORVASTATIN CALCIUM 40 MG TABLET PO SCH (21:25)
[2019-05-20] MEDS: CEFAZOLIN SODIUM 2 GM in DEXTROSE 5%-WATER 100 ML IV SCH ×3 (05:34→22:21)
[2019-05-20 06:06] LABS: APPEARANCE,URINE SLIGHTLY-CLOUDY; BILIRUBIN,URINE NEGATIVE (NEGATIVE); COLOR,URINE YELLOW; GLUCOSE, URINE NEGATIVE (NEGATIVE); KETONES,URINE NEGATIVE (NEGATIVE); LEUKOCYTE ESTERASE,URINE NEGATIVE (NEGATIVE); NITRITE,URINE NEGATIVE (NEGATIVE); PROTEIN,URINE NEGATIVE (NEGATIVE); URINE SPECIFIC GRAVITY 1.011; UROBILINOGEN,URINE NEGATIVE mg/dL (<2.0)
[2019-05-20] MEDS: FLUOXETINE HCL 20 MG CAPSULE PO SCH (09:47)
[2019-05-20] MEDS: CLOPIDOGREL BISULFATE 75 MG TABLET PO SCH (09:47)
[2019-05-20] MEDS: OMEGA-3 ACID ETHYL ESTERS 1 GM CAPSULE PO SCH ×2 (09:47→17:25)
[2019-05-20] MEDS: LISINOPRIL 10 MG TABLET PO SCH (09:47)
[2019-05-20] MEDS: HEPARIN SOD (PORCINE) 5,000 UNIT/ML 1 ML VIAL SUBCUT SCH ×2 (09:48→22:21)
[2019-05-20] MEDS: ESTROGENS,CONJUGATED 0.3 MG TABLET PO SCH (09:48)
[2019-05-20] MEDS: ASPIRIN 325 MG TABLET, ENT COATED PO SCH (09:48)
--- NOTE | 2019-05-20 12:14 | RADIOLOGY REPORT (SQ) ---
EXAM DESCRIPTION: PICC INSERTION; FLUORO/CV PLACEMENT; U/S GUIDE FOR VASCULAR ACCESS COMPLETED DATE/TIME: 05/20/2019 11:49 am REASON FOR STUDY: IV antibiotics x 4 weeks; IV ABX A41.89 OTHER SPECIFIED SEPSIS I50.20 UNSPECIFIE D SYSTOLIC (CONGESTIVE) HEART FAILURE I50.21 ACUTE SYSTOLIC (CONGESTIVE) HEART FAILURE COMPARISON: CT angio chest 05/14/2019 FLUOROSCOPY TIME: 4 seconds 1 minutes fluoroscopic 1 digital image and 1 ultrasound images saved to PACS. TECHNIQUE: Fluoroscopic and ultrasound guided PICC placement. LIMITATIONS: None. PROCEDURE: After written consent and assessment were obtained, the patient was brought into the fluo roscopy room and placed supine on the table. Ultrasound evaluation of potential access sites were per formed. After successfully identifying a patent left basilic vein, the left arm was prepped and drape d in a sterile fashion along with the ultrasound probe. The entry site was anesthetized with 1% lidoc moody. A 21 gauge 7 cm needle was advanced through the skin and into the basilic vein under live ultra sound guidance. An ultrasound image was saved to PACS confirming access site. A .018 guide wire was then inserted through the needle and into the venous system. The needle was then removed and an 11 b lade scalpel was used to make a 1cm skin incision. A 5 fr peel-away sheath was advanced over the wir e and into the venous system. A measurement was then made using the existing wire and live fluoroscop ic guidance. The wire was then removed and trimmed. The PICC was advanced through the peel-away sheat h and into the venous system. The peel-away sheath was removed and the catheter was adhered to the pa tients arm with a stat lock. The catheter was then aspirated and flushed and a sterile bandage was pl aced over the access site. A fluoroscopic spot image was saved to PACS confirming the catheter tip w ithin the superior vena cava. IMPRESSION: SUCCESSFUL PLACEMENT OF A 5 FR DUAL LUMEN 36 CM PICC IN THE LEFT BASILIC VEIN. COMMENT: Patient medication list reviewed: Yes- Quality ID# [id number]:Eligible professional attests to doc umenting in the medical record they obtained, updated, or reviewed the patient's current medications. . Quality ID 145: Final reports for procedures using fluoroscopy that document radiation exposure contreras neisha, or exposure time and number of fluorographic images (if radiation exposure indices are not avail able) Quality ID #76: The patient was prepped and draped using maximum sterile barrier technique including cap, mask, sterile gown, sterile gloves, a large sterile sheet, hand hygiene, and 2% Chlorhexidine fo r cutaneous antisepsis. When ultrasound is used, sterile ultrasound techniques are followed requiring sterile gel and sterile probes. TECHNICAL DOCUMENTATION: JOB ID: [id number] [employer]- All Rights Reserved Reading location - IP/workstation name: [email or web address]
--- NOTE | 2019-05-20 14:37 | PDOC PROGRESS REPORT ---
Subjective Progress Note for:: 05/20/19 Subjective:: 05/18/2019 patient was admitted to the hospital on May 13 with fever, chills, leukocytosis. Patient had recently on undergone a thrombectomy advised at [facility] for CVA due to the possibility of infection patient was admitted to the hospital for IV antibiotics. Patient was seen by infectious disease yesterday it was recommended that we change antibiotics to ceftezole. Per infectious disease the patient will need IV antibiotics for 4 weeks but a PICC line should not be placed until the patient has had 48 hours showing negative blood cultures JILLIAN was performed today at [facility] with the results pending. On admission white count was 14,202 days ago it was 7.7 hemoglobin has stabilized at 8.8 patient has been afebrile for 48 hours blood pressure 151/60, patient is growing out staph aureus in her urine and blood 05/19/2019 remains medically stable no fever temperature 98.4 blood pressure 138/66 sat 99% on room air. White count 8800 and H9.8 29.4, electrolytes are normal. Her graph second day of ceftezole and IV, last blood culture 48 hours ago was negative We will put an order in for PICC line tomorrow and possibly DC home on antibiotics Friday05/20/2018 she had PICC line placed today without complications patient is sitting up in bed fully dressed, asking to go home tomorrow. Patient will be DC'd with IV antibiotics for the next 4 weeks. Cardiology is still waiting to hear from the JILLIAN was done at [facility] patient's labs from couple days ago were all stable Reason For Visit: SEPSIS,UTI,RECENT CVA Physical Exam Vital Signs: Temp Pulse Resp BP Pulse Ox 97.6 F 67 18 121/72 99 05/20/19 11:59 05/20/19 14:00 05/20/19 11:59 05/20/19 11:59 05/20/19 11:59 Intake & Output 05/19/19 05/20/19 05/21/19 06:59 06:59 06:59 Intake Total 300 600 810 Output Total 500 350 Balance -200 250 810 Weight 63.5 kg 60 kg General appearance: PRESENT: no acute distress, well-developed, well-nourished Respiratory exam: PRESENT: clear to auscultation jareth. ABSENT: rales, rhonchi, wheezes Cardiovascular exam: PRESENT: RRR. ABSENT: diastolic murmur, rubs, systolic murmur Extremities exam: PRESENT: full ROM, other - PICC line left upper extremity. ABSENT: calf tenderness, clubbing, pedal edema Neurological exam: PRESENT: alert, awake, oriented to person, oriented to place, oriented to time, oriented to situation, CN II-XII grossly intact. ABSENT: motor sensory deficit Psychiatric exam: PRESENT: appropriate affect, normal mood. ABSENT: homicidal ideation, suicidal ideation Results Laboratory Results: 05/18/19 18:23 05/18/19 17:28 05/20/19 05:42 Urine Color YELLOW Urine Appearance SLIGHTLY-CLOUDY Urine pH 7.0 Ur Specific [place] 1.011 Urine Protein NEGATIVE Urine Glucose (UA) NEGATIVE Urine Ketones NEGATIVE Urine Blood NEGATIVE Urine Nitrite NEGATIVE Ur Leukocyte Esterase NEGATIVE Urine WBC (Auto) 1 05/15/19 08:50 Blood Blood Culture - Final NO GROWTH IN 5 DAYS 05/13/19 05/13/19 05/13/19 09:14 21:37 21:37 Creatine Kinase 414 H CK-MB (CK-2) 5.02 H Troponin I 0.025 0.122 NT-Pro-B Natriuret Pep 05/13/19 05/14/19 05/14/19 21:37 03:39 03:39 Creatine Kinase 516 H CK-MB (CK-2) 5.56 H Troponin I 1.590 NT-Pro-B Natriuret Pep 3770 H 05/14/19 05/14/19 05/15/19 09:25 09:25 08:50 Creatine Kinase 694 H CK-MB (CK-2) 7.53 H 1.82 Troponin I 0.971 0.406 NT-Pro-B Natriuret Pep 05/17/19 05:54 Creatine Kinase CK-MB (CK-2) Troponin I 0.113 NT-Pro-B Natriuret Pep Impressions: Head CT 05/13/19 09:18 IMPRESSION: Age-appropriate chronic white matter disease. Mild motion artifac t. No acute findings. EVIDENCE OF ACUTE STROKE: NO. Abdomen X-Ray 05/13/19 20:55 IMPRESSION: No evidence for bowel obstruction. Chest X-Ray 05/14/19 07:48 IMPRESSION: Resolved alveolar and interstitial pulmonary edema. Chest/Abdomen CTA 05/14/19 18:49 IMPRESSION: 1. No CT evidence for pulmonary embolism. 2. Small bilateral pleural effusions and patchy bilateral alveolar interstitial infiltrates, likely pulmonary edema. 3. At least 50% stenosis at the origin of the left subclavian artery. Focal ulceration versus pseudoaneurysm at the left subclavian artery origin, without adjacent increased soft tissue density. This could be an acute localized pseudoaneurysm/dissection, with adjacent hemorrhage. 4. Hiatal hernia with diffuse esophageal wall thickening, suspicious for acute esophagitis. 5. Coronary artery calcifications. Guidance Fluoroscopy 05/20/19 00:00 IMPRESSION: SUCCESSFUL PLACEMENT OF A 5 FR DUAL LUMEN 36 CM PICC IN THE LEFT BASILIC VEIN. Interventional Vascular Procedure 05/20/19 00:00 IMPRESSION: SUCCESSFUL PLACEMENT OF A 5 FR DUAL LUMEN 36 CM PICC IN THE LEFT BASILIC VEIN. PICC Line Insertion 05/20/19 00:00 IMPRESSION: SUCCESSFUL PLACEMENT OF A 5 FR DUAL LUMEN 36 CM PICC IN THE LEFT BASILIC VEIN. Assessment and Plan - Diagnosis (1) Recent cerebrovascular accident (CVA) Is this a current diagnosis for this admission?: Yes Plan: Recent right MCA mechanical thrombectomy and a right ICA angioplasty on 05/07/2019. Her CVA symptoms particularly left-sided hemiparesis has completely resolved. Continue aspirin and Plavix. 05/18/2019 patient currently on aspirin and Plavix with no residual from her CVA 05/19/2019 patient has no neurologic deficits patient is on aspirin and Plavix. 05/20/2019 she is neurologically intact on aspirin and Plavix (2) Sepsis Qualifiers: Sepsis type: sepsis due to unspecified organism Qualified Code(s): A41.9 - Sepsis, unspecified organism Is this a current diagnosis for this admission?: Yes Plan: 05/14: Likely secondary to urinary tract infection. On IV Rocephin. Blood culture grew gram-positive cocci 2/2 so far. No murmur appreciated on exam. Vancomycin was added last night. 05/15: Blood culture growing GPC in clusters. Continue Rocephin and vancomycin for now. No significant vegetations appreciated on TTE. 05/16: Her first set of blood cultures are growing MSSA 2/2. Repeat blood culture is growing possibly the same organism 1/2 bottles so far. Her urine culture is growing MSSA as well. She did complain of initial dysuria. MSSA does not typically cause urinary tract infection. Will consult infectious disease service for further recommendation. Currently on vancomycin and Rocephin. Will discontinue vancomycin. She did have recent instrumentation as she had two femoral cath approaches due to difficult access for her mechanical thrombectomy and carotid angioplasty and stenting at [facility] more than a week ago. Will pursue a JILLIAN to rule out endocarditis. Discussed with Dr. Doshi who does have the same recommendation to proceed with JILLIAN. Discussed plan of care with patient who is amenable to pursuing a JILLIAN. 05/17: Clinically improving. Her 2nd set of blood cultures are growing GPC. No recurrence of fever. She is going for a JILLIAN at [facility] later today. Vanco DCed. Continue Rocephin. Await further ID recommendations. 05/18/2019 Patient had a JILLIAN today at [facility] results are pending, Rocephin was discontinued and ceftazolin was added per recommendation by infectious disease. Patient is afebrile blood pressure 151/60 white count has gone down to 7.7 Patient will need IV antibiotics for 4 weeks at least 05/19/2019 nursing will try to call and get the results from the JILLIAN yesterday. Patient patient is hemodynamically stable to 138/66 temp 98 4 white count 8.8 05/20/2019 patient remains afebrile, hemodynamically stable, will need 4 more weeks of IV antibiotics (3) UTI (urinary tract infection) Is this a current diagnosis for this admission?: Yes - Time Time Spent with patient: 15-24 minutes
[2019-05-20] MEDS ORDERED: NORMAL SALINE 10 ML SDV (AFTER EACH USE) IV PRN (15:00)
[2019-05-20] MEDS: ATORVASTATIN CALCIUM 40 MG TABLET PO SCH (22:21)
[2019-05-20] MEDS: NORMAL SALINE 10 ML SDV (SCHEDULED) IV SCH (22:22)
[2019-05-21] MEDS: CEFAZOLIN SODIUM 2 GM in DEXTROSE 5%-WATER 100 ML IV SCH ×3 (05:24→22:12)
--- NOTE | 2019-05-21 10:10 | PDOC PROGRESS REPORT ---
Subjective Progress Note for:: 05/21/19 Subjective:: 05/18/2019 patient was admitted to the hospital on May 13 with fever, chills, leukocytosis. Patient had recently on undergone a thrombectomy advised at [facility] for CVA due to the possibility of infection patient was admitted to the hospital for IV antibiotics. Patient was seen by infectious disease yesterday it was recommended that we change antibiotics to ceftezole. Per infectious disease the patient will need IV antibiotics for 4 weeks but a PICC line should not be placed until the patient has had 48 hours showing negative blood cultures JILLIAN was performed today at [facility] with the results pending. On admission white count was 14,202 days ago it was 7.7 hemoglobin has stabilized at 8.8 patient has been afebrile for 48 hours blood pressure 151/60, patient is growing out staph aureus in her urine and blood 05/19/2019 remains medically stable no fever temperature 98.4 blood pressure 138/66 sat 99% on room air. White count 8800 and H9.8 29.4, electrolytes are normal. Her graph second day of ceftezole and IV, last blood culture 48 hours ago was negative We will put an order in for PICC line tomorrow and possibly DC home on antibiotics Friday05/20/2019 she had PICC line placed today without complications patient is sitting up in bed fully dressed, asking to go home tomorrow. Patient will be DC'd with IV antibiotics for the next 4 weeks. Cardiology is still waiting to hear from the JILLIAN was done at [facility] patient's labs from couple days ago were all stable 05/21/2019 patient was supposed to be discharged home today but unfortunately we cannot get her IV antibiotics set up tomorrow morning, therefore she is going to remain in the hospital today get her IV antibiotics and then be discharged home in the morning Dr. Pagan will see the patient concerning her JILLIAN report, which shows no signs of endocarditis. Will need IV antibiotics for 4 weeks. Labs are stable patient is sitting up in bed dressed, in no distress Reason For Visit: SEPSIS,UTI,RECENT CVA Physical Exam Vital Signs: Temp Pulse Resp BP Pulse Ox 98.3 F 70 17 121/82 99 05/21/19 07:38 05/21/19 07:38 05/21/19 07:38 05/21/19 07:38 05/21/19 07:38 Intake & Output 05/20/19 05/21/19 05/22/19 06:59 06:59 06:59 Intake Total 600 1820 Output Total 350 400 Balance 250 1420 Weight 60 kg 61.2 kg General appearance: PRESENT: no acute distress, well-developed, well-nourished Head exam: PRESENT: atraumatic, normocephalic Respiratory exam: PRESENT: clear to auscultation jareth. ABSENT: rales, rhonchi, wheezes Cardiovascular exam: PRESENT: RRR. ABSENT: diastolic murmur, rubs, systolic murmur Extremities exam: PRESENT: full ROM. ABSENT: calf tenderness, clubbing, pedal edema Neurological exam: PRESENT: alert, awake, oriented to person, oriented to place, oriented to time, oriented to situation, CN II-XII grossly intact. ABSENT: motor sensory deficit Psychiatric exam: PRESENT: appropriate affect, normal mood. ABSENT: homicidal ideation, suicidal ideation Results Laboratory Results: 05/18/19 18:23 05/18/19 17:28 05/15/19 08:50 Blood Blood Culture - Final NO GROWTH IN 5 DAYS 05/13/19 05/13/19 05/13/19 09:14 21:37 21:37 Creatine Kinase 414 H CK-MB (CK-2) 5.02 H Troponin I 0.025 0.122 NT-Pro-B Natriuret Pep 05/13/19 05/14/19 05/14/19 21:37 03:39 03:39 Creatine Kinase 516 H CK-MB (CK-2) 5.56 H Troponin I 1.590 NT-Pro-B Natriuret Pep 3770 H 05/14/19 05/14/19 05/15/19 09:25 09:25 08:50 Creatine Kinase 694 H CK-MB (CK-2) 7.53 H 1.82 Troponin I 0.971 0.406 NT-Pro-B Natriuret Pep 05/17/19 05:54 Creatine Kinase CK-MB (CK-2) Troponin I 0.113 NT-Pro-B Natriuret Pep Impressions: Head CT 05/13/19 09:18 IMPRESSION: Age-appropriate chronic white matter disease. Mild motion artifact. No acute findings. EVIDENCE OF ACUTE STROKE: NO. Abdomen X-Ray 05/13/19 20:55 IMPRESSION: No evidence for bowel obstruction. Chest X-Ray 05/14/19 07:48 IMPRESSION: Resolved alveolar and interstitial pulmonary edema. Chest/Abdomen CTA 05/14/19 18:49 IMPRESSION: 1. No CT evidence for pulmonary embolism. 2. Small bilateral pleural effusions and patchy bilateral alveolar interstitial infiltrates, likely pulmonary edema. 3. At least 50% stenosis at the origin of the left subclavian artery. Focal ulceration versus pseudoaneurysm at the left subclavian artery origin, without adjacent increased soft tissue density. This could be an acute localized pseudoaneurysm/dissection, with adjacent hemorrhage. 4. Hiatal hernia with diffuse esophageal wall thickening, suspicious for acute esophagitis. 5. Coronary artery calcifications. Guidance Fluoroscopy 05/20/19 00:00 IMPRESSION: SUCCESSFUL PLACEMENT OF A 5 FR DUAL LUMEN 36 CM PICC IN THE LEFT BASILIC VEIN. Interventional Vascular Procedure 05/20/19 00:00 IMPRESSION: SUCCESSFUL PLACEMENT OF A 5 FR DUAL LUMEN 36 CM PICC IN THE LEFT BASILIC VEIN. PICC Line Insertion 05/20/19 00:00 IMPRESSION: SUCCESSFUL PLACEMENT OF A 5 FR DUAL LUMEN 36 CM PICC IN THE LEFT BASILIC VEIN. Assessment and Plan - Diagnosis (1) Recent cerebrovascular accident (CVA) Is this a current diagnosis for this admission?: Yes Plan: Recent right MCA mechanical thrombectomy and a right ICA angioplasty on 05/07/2019. Her CVA symptoms particularly left-sided hemiparesis has completely resolved. Continue aspirin and Plavix. 05/18/2019 patient currently on aspirin and Plavix with no residual from her CVA 05/19/2019 patient has no neurologic deficits patient is on aspirin and Plavix. 05/20/2019 she is neurologically intact on aspirin and Plavix 05/21/2019 she remains neurologically intact. No signs of CVA (2) Sepsis Qualifiers: Sepsis type: sepsis due to unspecified organism Qualified Code(s): A41.9 - Sepsis, unspecified organism Is this a current diagnosis for this admission?: Yes Plan: 05/14: Likely secondary to urinary tract infection. On IV Rocephin. Blood culture grew gram-positive cocci 2/2 so far. No murmur appreciated on exam. Vancomycin was added last night. 05/15: Blood culture growing GPC in clusters. Continue Rocephin and vancomycin for now. No significant vegetations appreciated on TTE. 05/16: Her first set of blood cultures are growing MSSA 2/2. Repeat blood culture is growing possibly the same organism 1/2 bottles so far. Her urine culture is growing MSSA as well. She did complain of initial dysuria. MSSA does not typically cause urinary tract infection. Will consult infectious disease service for further recommendation. Currently on vancomycin and Rocephin. Will discontinue vancomycin. She did have recent instrumentation as she had two femoral cath approaches due to difficult access for her mechanical thrombectomy and carotid angioplasty and stenting at [facility] more than a week ago. Will pursue a JILLIAN to rule out endocarditis. Discussed with Dr. Doshi who does have the same recommendation to proceed with JILLIAN. Discussed plan of care with patient who is amenable to pursuing a JILLIAN. 05/17: Clinically improving. Her 2nd set of blood cultures are growing GPC. No recurrence of fever. She is going for a JILLIAN at [facility] later today. Vanco DCed. Continue Rocephin. Await further ID recommendations. 05/18/2019 Patient had a JILLIAN today at [facility] results are pending, Rocephin was discontinued and ceftazolin was added per recommendation by infectious disease. Patient is afebrile blood pressure 151/60 white count has gone down to 7.7 Patient will need IV antibiotics for 4 weeks at least 05/19/2019 nursing will try to call and get the results from the JILLIAN yesterday. Patient patient is hemodynamically stable to 138/66 temp 98 4 white count 8.8 05/20/2019 patient remains afebrile, hemodynamically stable, will need 4 more weeks of IV antibiotics 05/21/2019 patient's vital signs are stable temperature 98.3 blood pressure 121/82 O2 sat 99% on room air. Patient white count is normal have made arrangements for IV antibiotics to start tomorrow for 4 weeks at home. Patient's was called today and the case was discussed with him at her request (3) UTI (urinary tract infection) Is this a current diagnosis for this admission?: Yes Plan: Urine culture is growing MSSA. Discontinued vancomycin. Continue Rocephin. Await further ID recommendations. 05/18/2019 discontinue Rocephin start ceftezolin. Patient is growing out staph aureus in her urine 05/19/2019 last blood culture was reported negative on 05 17. Patient has no dysuria no fever 05/21/2019 no fever white count is normal. Patient has no urinary complaints - Time Time Spent with patient: 25-34 minutes
[2019-05-21] MEDS: LISINOPRIL 10 MG TABLET PO SCH (10:57)
[2019-05-21] MEDS: ESTROGENS,CONJUGATED 0.3 MG TABLET PO SCH (10:57)
[2019-05-21] MEDS: ASPIRIN 325 MG TABLET, ENT COATED PO SCH (10:57)
[2019-05-21] MEDS: OMEGA-3 ACID ETHYL ESTERS 1 GM CAPSULE PO SCH ×2 (10:57→17:18)
[2019-05-21] MEDS: CLOPIDOGREL BISULFATE 75 MG TABLET PO SCH (10:57)
[2019-05-21] MEDS: FLUOXETINE HCL 20 MG CAPSULE PO SCH (10:57)
[2019-05-21] MEDS: HEPARIN SOD (PORCINE) 5,000 UNIT/ML 1 ML VIAL SUBCUT SCH ×2 (10:57→22:09)
[2019-05-21] MEDS: NORMAL SALINE 10 ML SDV (SCHEDULED) IV SCH ×2 (10:58→22:12)
[2019-05-21] MEDS ORDERED: OMEGA-3 ACID ETHYL ESTERS 1 GM CAPSULE PO ONE (11:15)
[2019-05-21] MEDS: ATORVASTATIN CALCIUM 40 MG TABLET PO SCH (22:11)
[2019-05-22] MEDS: CEFAZOLIN SODIUM 2 GM in DEXTROSE 5%-WATER 100 ML IV SCH (05:39)
[2019-05-22 08:14] VITALS: BP 123/60
[2019-05-22] MEDS: ASPIRIN 325 MG TABLET, ENT COATED PO SCH (09:20)
[2019-05-22] MEDS: FLUOXETINE HCL 20 MG CAPSULE PO SCH (09:20)
[2019-05-22] MEDS: LISINOPRIL 10 MG TABLET PO SCH (09:20)
[2019-05-22] MEDS: CLOPIDOGREL BISULFATE 75 MG TABLET PO SCH (09:21)
[2019-05-22] MEDS: OMEGA-3 ACID ETHYL ESTERS 1 GM CAPSULE PO SCH (09:21)
[2019-05-22] MEDS: HEPARIN SOD (PORCINE) 5,000 UNIT/ML 1 ML VIAL SUBCUT SCH (09:21)
[2019-05-22] MEDS: ESTROGENS,CONJUGATED 0.3 MG TABLET PO SCH (09:22)
[2019-05-22] MEDS: NORMAL SALINE 10 ML SDV (SCHEDULED) IV SCH (09:22)
--- NOTE | 2019-05-22 17:12 | PDOC DISCHARGE SUMMARY ---
General - Admit/Disc Date/PCP Admission Date/Primary Care Provider: 05/13/19 15:25 MADDISON MG MD Patient was admitted on 05/13/2019 for fever and chills patient had recently undergone a mechanical thrombectomy and right internal carotid angioplasty on 05/07/2019 patient started having chills came to the emergency room with a fever of 101 and blood pressure 88/55 with leukocytosis. Patient was admitted to hospital for possible UTI and sepsis. Discharge Date: 05/22/19 - Discharge Diagnosis (1) Recent cerebrovascular accident (CVA) Is this a current diagnosis for this admission?: Yes Summary: When patient was admitted to the hospital she had no neurologic deficit and her previous CVA had resolved completely (2) Sepsis Is this a current diagnosis for this admission?: Yes Summary: Admission her temperature was 101.4 white count 14,200, lactic acid 1.4 urine showed a trace of leukocytes negative nitrates normal troponin. Patient was started on Rocephin the and fluids (3) UTI (urinary tract infection) Is this a current diagnosis for this admission?: Yes Summary: Urine grew out staph aureus as well as blood ulcers - Additional Information Resuscitation Status: Full Code Discharge Diet: As Tolerated Discharge Activity: Activity As Tolerated Home Medications: Aspirin [Ecotrin 325 mg EC Tablet] 325 mg PO DAILY 05/13/19 Atorvastatin Calcium [Lipitor 40 mg Tablet] 40 mg PO QHS 05/13/19 Clopidogrel Bisulfate [Plavix 75 mg Tablet] 75 mg PO DAILY 05/13/19 Estrogens,Conjugated [Premarin 0.3 mg Tablet] 0.3 mg PO DAILY 05/13/19 Fluoxetine HCl [Prozac 20 mg Capsule] 20 mg PO DAILY 05/13/19 Lisinopril [Prinivil 10 mg Tablet] 10 mg PO DAILY 05/13/19 [place]-3/Dha/Epa/Fish Oil [Fish Oil 1,000 mg Softgel] 2,000 mg PO BID 05/13/19 Cefazolin Sodium [Ancef Inj 1 gm Vial] 2 gm IV Q8 vial 05/22/19 Clopidogrel Bisulfate [Plavix 75 mg Tablet] 75 mg PO DAILY tablet 05/22/19 History of Present Illness History of Present Illness: CHRIS WILBURN is a 68 year old female Patient apparently developed sepsis hollowing thrombectomy for CVA. Patient came to the emergency room she was febrile had a white count and appear to be septic IV antibiotics were started Hospital Course Hospital Course: Patient had IV Rocephin vancomycin started in the ED. Rocephin was actually switched over to cefepime as recommended by infectious disease consult. Vancomycin was discontinued on the fourth and cefepime started 6. Patient was given 2 g IV every 8 hours and discharged home with a PICC line to continue this for another 4 weeks. A great deal of time and effort was spent lining up home health to get these drugs to her. While in the hospital she was also seen by cardiology who recommended a JILLIAN which was done at [facility] which showed no evidence of thrombus formation or endocarditis [email or web address] patient was supposed to be discharged yesterday but because we could not get home health lined up until today she was kept an extra day in the hospital at the time of discharge patient was to be seen by home health today to start her IV antibiotics. Patient was to follow-up with her primary care provider. At the time of discharge patient was afebrile, her last fever was on May 19, and since then she has been afebrile. At the time of discharge her white count is come down to 8.8, and it is been as high as 16,000 Patient was discharged home medically stable in good condition Physical Exam Vital Signs: Temp Pulse Resp BP Pulse Ox 98.2 F 84 16 123/60 99 05/22/19 08:40 05/22/19 08:40 05/22/19 08:40 05/22/19 08:40 05/22/19 08:40 Intake & Output 05/21/19 05/22/19 05/23/19 06:59 06:59 06:59 Intake Total 1820 1600 Output Total 400 800 Balance 1420 800 Weight 61.2 kg 64 kg General appearance: PRESENT: no acute distress, well-developed, well-nourished Head exam: PRESENT: atraumatic, normocephalic Respiratory exam: PRESENT: clear to auscultation jareth. ABSENT: rales, rhonchi, wheezes Cardiovascular exam: PRESENT: RRR. ABSENT: diastolic murmur, rubs, systolic murmur Neurological exam: PRESENT: alert, awake, oriented to person, oriented to place, oriented to time, oriented to situation, CN II-XII grossly intact. ABSENT: motor sensory deficit Psychiatric exam: PRESENT: appropriate affect, normal mood. ABSENT: homicidal ideation, suicidal ideation Skin exam: PRESENT: dry, intact, warm. ABSENT: cyanosis, rash Results Laboratory Results: 05/18/19 18:23 05/18/19 17:28 05/17/19 06:59 Blood Blood Culture - Final NO GROWTH IN 5 DAYS 05/17/19 05:54 Blood Blood Culture - Final NO GROWTH IN 5 DAYS 05/13/19 05/13/19 05/13/19 09:14 21:37 21:37 Creatine Kinase 414 H CK-MB (CK-2) 5.02 H Troponin I 0.025 0.122 NT-Pro-B Natriuret Pep 05/13/19 05/14/19 05/14/19 21:37 03:39 03:39 Creatine Kinase 516 H CK-MB (CK-2) 5.56 H Troponin I 1.590 NT-Pro-B Natriuret Pep 3770 H 05/14/19 05/14/19 05/15/19 09:25 09:25 08:50 Creatine Kinase 694 H CK-MB (CK-2) 7.53 H 1.82 Troponin I 0.971 0.406 NT-Pro-B Natriuret Pep 05/17/19 05:54 Creatine Kinase CK-MB (CK-2) Troponin I 0.113 NT-Pro-B Natriuret Pep Impressions: Head CT 05/13/19 09:18 IMPRESSION: Age-appropriate chronic white matter disease. Mild motion artifact. No acute findings. EVIDENCE OF ACUTE STROKE: NO. Abdomen X-Ray 05/13/19 20:55 IMPRESSION: No evidence for bowel obstruction. Chest X-Ray 05/14/19 07:48 IMPRESSION: Resolved alveolar and interstitial pulmonary edema. Chest/Abdomen CTA 05/14/19 18:49 IMPRESSION: 1. No CT evidence for pulmonary embolism. 2. Small bilateral pleural effusions and patchy bilateral alveolar interstitial infiltrates, likely pulmonary edema. 3. At least 50% stenosis at the origin of the left subclavian artery. Focal ulceration versus pseudoaneurysm at the left subclavian artery origin, without adjacent increased soft tissue density. This could be an acute localized pseudoaneurysm/dissection, with adjacent hemorrhage. 4. Hiatal hernia with diffuse esophageal wall thickening, suspicious for acute esophagitis. 5. Coronary artery calcifications. Guidance Fluoroscopy 05/20/19 00:00 IMPRESSION: SUCCESSFUL PLACEMENT OF A 5 FR DUAL LUMEN 36 CM PICC IN THE LEFT BASILIC VEIN. Interventional Vascular Procedure 05/20/19 00:00 IMPRESSION: SUCCESSFUL PLACEMENT OF A 5 FR DUAL LUMEN 36 CM PICC IN THE LEFT BASILIC VEIN. PICC Line Insertion 05/20/19 00:00 IMPRESSION: SUCCESSFUL PLACEMENT OF A 5 FR DUAL LUMEN 36 CM PICC IN THE LEFT BASILIC VEIN. Qualifiers - * PATIENT BEING DISCHARGED WITH ANY OF THE FOLLOWING DIAGNOSIS: No Acute Heart Failure - Is this a Heart Failure Patient?: No Plan Time Spent: Greater than 30 Minutes - Great deal of time is been spent by the hospitalist service, nursing service, and discharge planning, discharge planning has been hours on the phone lining up home health and talking to the . Nursing is spent hours on the phone trying to get the JILLIAN results from [facility], and I myself have called the patient's on one occasion to discuss her discharge. Because patient did not have any evidence of endocarditis she only needed 4 weeks of additional IV antibiotics as opposed to 6.. Patient is to follow-up with her primary care. Patient was medically stable at the time of discharge
== END 2019-05-22 10:37 | disposition home or self-care (01) | DRG 872 ==
LOC: ER 09:07 → EH 11:37 → INTOOBSV 11:37 → OBSVTOIN 15:25 → 3N 18:25
PROVIDERS: ADMIT Internal Medicine; ATTEND Internal Medicine
PROC: 5A09457 Assistance with Respiratory Ventilation, 24-96 Consecutive Hours, Continuous Positive Airway Pressure (ICD-10-PCS; 2019-05-13)
PROC: 02HV33Z Insertion of Infusion Device into Superior Vena Cava, Percutaneous Approach (ICD-10-PCS; principal; 2019-05-20)
PROC: B548ZZA Ultrasonography of Superior Vena Cava, Guidance (ICD-10-PCS; 2019-05-20)
PROC: B518ZZA Fluoroscopy of Superior Vena Cava, Guidance (ICD-10-PCS; 2019-05-20)
DX: A41.9 Sepsis, unspecified organism (principal); N39.0 Urinary tract infection, site not specified; I10 Essential (primary) hypertension; R79.89 Other specified abnormal findings of blood chemistry; B95.61 Methicillin susceptible Staphylococcus aureus infection as the cause of diseases classified elsewhere; R09.02 Hypoxemia; Z79.82 Long term (current) use of aspirin; Z86.73 Personal history of transient ischemic attack (TIA), and cerebral infarction without residual deficits; Z79.02 Long term (current) use of antithrombotics/antiplatelets; Z95.828 Presence of other vascular implants and grafts; Z95.5 Presence of coronary angioplasty implant and graft
CPT/HCPCS: 36415; 36569; 51702; 70450; 71045; 71275; 74019; 76937; 77001; 80048; 80053; 80202; 81001; 82550; 82553; 82803; 82962; 83605; 83880; 84484; 85025; 85610; 87040; 87070; 87077; 87086; 87088; 87186; 93005; 93010; 93306; 94660; 96361; 96374; 96375; 99285; G0378; J0690; J0696; J1642; J1644; J1885; J1940; J2270; J2405; J3370; J3490; J7030; J7060; J7120